=== PATIENT | female | born 1990 | race Caucasian/White ===

== ENCOUNTER 2016-03-04 17:39 | Emergency (ER) | payer OTHER ==
[~2016-03-04 17:39] MED LIST: COLA100C PO; FERR325T3 PO; IBUP80TA PO; PERCOCET PO
[2016-03-04] MEDS ORDERED: KETOROLAC 30 MG/ML VIAL (J1885) As Ordered ONE (19:43)
[2016-03-04] MEDS ORDERED: ONDANSETRON 4MG/2ML VIAL (J2405) As Ordered ONE (19:43)
[2016-03-04] MEDS ORDERED: FAMOTIDINE/NS 20 MG/50 ML BAG (S0028) As Ordered ONE (19:46)
[2016-03-04 19:52] LABS: BASO % 0.4 % (0.0-1.0); EOS # 0.1 K/mm3 (0.0-0.50); EOS % 0.9 % (0.0-3.0); LARGE UNSTAINED CELL # 0.1 K/mm3 (0.0-0.4); LARGE UNSTAINED CELL % 0.7 % (0.0-4.0); LYMPH # 0.4 K/mm3 (1.5-6.5); LYMPH % 4.2 % (24.0-44.0); MEAN CORPUSCULAR HEMOGLOBIN 26.7 pg (27.0-33.0); MEAN CORPUSCULAR HGB CONC 32.1 g/dl (32.0-36.5); MEAN CORPUSCULAR VOLUME 83.1 fl (80.0-96.0); MONO # 0.3 K/mm3 (0.0-0.8); MONO % 3.5 % (0.0-5.0); NEUTROPHILS # 8.9 K/mm3 (1.8-7.7); NEUTROPHILS % 90.4 % (36.0-66.0); PLATELET COUNT, AUTOMATED 309 k/mm3 (150-450); WHITE BLOOD COUNT 9.8 K/mm3 (4.0-10.0)
[2016-03-04 20:07] LABS: CONTROL LINE UCG INT CTR LINE PRESENT
[2016-03-04 20:08] LABS: MICROSCOPIC INDICATED? MAN YES (NO)
[2016-03-04 20:18] LABS: RBC, URINE TNTC /hpf (0-3)
[2016-03-04 20:19] LABS: BACTERIA, URINE SMALL AMOUNT; HYALINE CAST, URINE NONE SEEN /lpf (0-1); MICROSCOPIC EXAM PERFORMED; SQUAMOUS EPITHELIAL CELL URINE SMALL AMOUNT /hpf (SMALL AMT)
[2016-03-04 20:48] LABS: ALBUMIN 3.7 GM/DL (3.2-5.2); ALBUMIN/GLOBULIN RATIO 0.95 (1.00-1.93); ALKALINE PHOSPHATASE 61 U/L (45-117); ALT/SGPT 22 U/L (12-78); ANION GAP 9 MEQ/L (8-16); AST/SGOT 13 U/L (15-37); BILIRUBIN,DIRECT 0.1 MG/DL (0.0-0.2); BILIRUBIN,TOTAL 0.6 MG/DL (0.2-1.0); BLOOD UREA NITROGEN 15 MG/DL (7-18); CALCIUM LEVEL 8.3 MG/DL (8.5-10.1); CARBON DIOXIDE LEVEL 24 MEQ/L (21-32); CHLORIDE LEVEL 109 MEQ/L (98-107); CREATININE FOR GFR 0.81 MG/DL (0.55-1.02); GLOMERULAR FILTRATION RATE > 60.0 (>60); GLUCOSE, FASTING 92 MG/DL (70-105); POTASSIUM SERUM 4.4 MEQ/L (3.5-5.1); SODIUM LEVEL 142 MEQ/L (136-145); TOTAL PROTEIN 7.6 GM/DL (6.4-8.2)
[2016-03-04] MEDS ORDERED: BACTRIM 160MG/800MG DS TAB As Ordered ONE (20:48)
[2016-03-04] MEDS ORDERED: ONDANSETRON 4 MG ORAL DISINTEGRATING TAB (S0181) As Ordered ONE (21:33)
--- NOTE | 2016-03-04 21:38 | EDDOCDS ---
Nurse's Notes [facility] Name: Yuki Richards Age: 25 yrs Sex: Female : 1990 Arrival Date: 03/04/2016 Time: 17:39 Bed I4 / M4 Private MD: NO PRIMARY PHYSICIAN, . Diagnosis: Urinary tract infection, site not specified;Generalized abdominal pain;Vomiting Presentation: 03/04 17:52 Presenting complaint: Patient states: nausea/vomiting/abdominal cramps radiates to back rs3 since this morning. Adult Sepsis Screening: The patient does not have new or worsening altered mentation. Patient's respiratory rate is less than 22. Systolic blood pressure is greater than 100. Patient has a qSOFA score of 0- Negative Sepsis Screen. Suicide/Homicide risk assessment- the patient denies having any suicidal and/or homicidal ideations and does not present with any other emotional, behavioral or mental health complaints. Status: Patient is not a national service officer or dependent. Transition of care: patient was not received from another setting of care. 17:52 Acuity: IAN Level 3 rs3 17:52 Method Of Arrival: Walkin/Carried/Asstd rs3 Triage Assessment: 17:54 General: Appears uncomfortable. Pain: Location: abdomen. HIV screening NA for this rs3 visit Offered previously. 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 TriNessa (28) 0.18/0.215/0.25 mg-35 mcg (28) oral tab - PMHx: none; - PSHx: none; - Social history: Smoking status: Patient uses tobacco products, light tobacco smoker. No barriers to communication noted, The patient speaks fluent Lithuanian. - Family history: Not pertinent. - : The pt / caregiver states he / she is not on anticoagulants. Home medication list is obtained from the patient. - Exposure Risk Screening:: None identified. Screenin:45 Screening information is obtained from the patient. Fall risk: No risks identified. ms2 Assistance ADL's: requires no assistance with activities of daily living. Abuse/DV Screen: The patient / caregiver reports he/she is: not in a situation that causes fear, pain or injury. Nutritional screening: No deficits noted. Advance Directives: Currently, there is a health care proxy, grandmother ---Eva Mary and tamiko Asht Caitlyn. home support is adequate. Assessment: 19:43 General: Appears in no apparent distress, no vomiting pressently. Behavior is ms2 cooperative. Neurological: Level of Consciousness is awake, alert, obeys commands. Respiratory: No deficits noted. Airway is patent Respiratory effort is even, unlabored, Respiratory pattern is regular, symmetrical. GI: Abdomen is flat, non- distended. Derm: Skin is pink, warm & dry. Musculoskeletal: Range of motion intact in all extremities. 20:53 General: Appears in no apparent distress, comfortable, Behavior is cooperative. ms2 Neurological: No deficits noted. Respiratory: Respiratory effort is even, unlabored. Derm: Skin is pink, warm & dry. 21:36 General: Appears in no apparent distress, comfortable, Behavior is appropriate for age, ms18 cooperative, pleasant. Pain: Location: suprapubic area Pain currently is 5 out of 10 on a pain scale. Neurological: No deficits noted. Respiratory: Airway is patent Respiratory effort is even, unlabored. GI: Abdomen is non- distended Bowel sounds present X 4 quads. Abd is soft X 4 quads. : Urine is cloudy. Derm: Skin is pink, warm & dry. Vital Signs: 17:41 BP 114 / 73; Pulse 130; Resp 20; Temp 97.0(O); Pulse Ox 99% on R/A; Weight 68.04 kg elp (R); Height 5 ft. 1 in. (154.94 cm) (R); 21:31 BP 99 / 54; Pulse 82; Resp 18; Temp 99; Pulse Ox 100% ; Pain 5/10; jlm 17:41 Body Mass Index 28.34 (68.04 kg, 154.94 cm) elp Vitals: 17:41 Log In Time: March 04, 2016 at 17:39. el ED Course: 17:40 Patient visited by Giovanna Stevens PCA. elp 17:40 Patient moved to Waiting elp 17:41 NO PRIMARY PHYSICIAN, . is Private Physician. elp 17:42 Patient visited by Giovanna Stevens PCA. elp 17:43 Patient moved to Pre RCE elp 17:52 Triage Initiated rs3 18:46 Patient moved to Triage 1 ar3 18:48 Patient visited by Sapphire Cárdenas RN. dls 19:10 Donnie Kennedy PA is PHCP. mo1 19:10 Chon Butler DO is Attending Physician. mo1 19:21 Patient visited by Donnie Kennedy PA. mo1 19:28 Patient moved to I4 / M4 rs3 19:42 Patient visited by Rajeev Salguero RN. ms2 19:42 Basic Metabolic Profile Sent. ms2 19:42 CBC with Diff Sent. ms2 19:42 Lipase Sent. ms2 19:42 Liver Profile Sent. ms2 19:42 Urine Test-In Lab Sent. ms2 19:42 Inserted saline lock: 20 gauge in right antecubital area The patient tolerated the ms2 procedure well. No procedures done that require assistance. 19:43 The patient / caregiver is instructed regarding the plan of care and ED course. ms2 19:57 Patient visited by Olivia Richards RN. ms18 20:25 [facility] [place] was scanned into [employer] and attached to record. zo 20:54 The patient / caregiver is instructed regarding the plan of care and ED course. ms2 20:54 IV is patent, is intact, is free of redness or swelling. solution is infusing as ms2 ordered. 20:57 Patient visited by Felicita Donahue, Cost Clerk. jlm 21:28 Patient visited by Olivia Richards RN. ms18 21:29 [facility] is Referral Physician. mo1 21:29 Roberto Banda MD is Referral Physician. mo1 21:32 Patient visited by Felicita Donahue, Cost Clerk. jlm 21:36 Accompanied by Friend, Patient has correct armband on for positive identification. ms18 Property sent home with patient. :Personal belongings accompany Pt. 21:36 Discontinued IV lock intact, bleeding controlled, pressure dressing applied, No ms18 redness/swelling at site. Administered Medications: 19:58 Drug: NS 0.9% 1000 ml [sodium chloride 0.9 % intravenous solution] Route: IV; Rate: ms18 bolus; Site: right antecubital; 19:58 Drug: Ondansetron 4 mg Route: IVP; Site: right antecubital; ms18 19:58 Drug: ketorolac 30 mg [ketorolac 30 mg/mL (1 mL) injection solution (1 mL)] Route: IVP; ms18 Site: right antecubital; 19:58 Drug: Famotidine 20 mg [famotidine 10 mg/mL intravenous solution] Route: IVPB; Infused ms18 Over: 30 mins; Site: right antecubital; 20:53 Drug: NS 0.9% 1000 ml [sodium chloride 0.9 % intravenous solution] Route: IV; Rate: ms2 bolus; Site: right antecubital; 20:53 Drug: Trimethoprim-Sulfamethoxazole 1 tabs [sulfamethoxazole 800 mg-trimethoprim 160 mg ms2 tablet (1 tabs)] Route: PO; 21:36 Drug: Ondansetron ODT 4 mg [ondansetron 4 mg disintegrating tablet (1 tabs)] Route: PO; ms18 21:36 Follow up: Response: Pt left department before re-evaluation is appropriate ms18 Point of Care Testing: Urine : 19:57 hCG Reading: Negative; Control Reading: Positive; ms18 Ranges: Intake: 20:53 PO: 80.00ml (Water); IV: 1000.00ml (NS); Total: 1080.00ml. ms2 Order Results: Lab Order: Basic Metabolic Profile; SPEC'M 03/04/16 20:15 Test: GLUCOSE, FASTING; Value: 92; Range: 70-105; Units: MG/DL; Status: F Test: BLOOD UREA NITROGEN; Value: 15; Range: 7-18; Units: MG/DL; Status: F Test: CREATININE FOR GFR; Value: 0.81; Range: 0.55-1.02; Units: MG/DL; Status: F Test: GLOMERULAR FILTRATION RATE; Value: > 60.0; Range: >60; Status: F Test: SODIUM LEVEL; Value: 142; Range: 136-145; Units: MEQ/L; Status: F Test: POTASSIUM SERUM; Value: 4.4; Range: 3.5-5.1; Units: MEQ/L; Status: F Test: CHLORIDE LEVEL; Value: 109; Range: 98-107; Abnormal: Above high normal; Units: MEQ/L; Status: F Test: CARBON DIOXIDE LEVEL; Value: 24; Range: 21-32; Units: MEQ/L; Status: F Test: ANION GAP; Value: 9; Range: 8-16; Units: MEQ/L; Status: F Test: CALCIUM LEVEL; Value: 8.3; Range: 8.5-10.1; Abnormal: Below low normal; Units: MG/DL; Status: F Test Note: ; Units are mL/min/1.73 m2 Chronic Kidney Disease Staging per NKF: Stage I & II GFR >=60 Normal to Mildly Decreased Stage III GFR 30-59 Moderately Decreased Stage IV GFR 15-29 Severely Decreased Stage V GFR <15 Very Little GFR Left ESRD GFR <15 on PAPERBOARD BOXES ESTIMATOR Lab Order: CBC with Diff; SPEC'M 03/04/16 19:35 Test: WHITE BLOOD COUNT; Value: 9.8; Range: 4.0-10.0; Units: K/mm3; Status: F Test: RED BLOOD COUNT; Value: 5.36; Range: 4.00-5.40; Units: M/mm3; Status: F Test: HEMOGLOBIN; Value: 14.3; Range: 12.0-16.0; Units: g/dl; Status: F Test: HEMATOCRIT; Value: 44.5; Range: 36.0-47.0; Units: %; Status: F Test: MEAN CORPUSCULAR VOLUME; Value: 83.1; Range: 80.0-96.0; Units: fl; Status: F Test: MEAN CORPUSCULAR HEMOGLOBIN; Value: 26.7; Range: 27.0-33.0; Abnormal: Below low normal; Units: pg; Status: F Test: MEAN CORPUSCULAR HGB CONC; Value: 32.1; Range: 32.0-36.5; Units: g/dl; Status: F Test: RED CELL DISTRIBUTION WIDTH; Value: 14.0; Range: 11.5-14.5; Units: %; Status: F Test: PLATELET COUNT, AUTOMATED; Value: 309; Range: 150-450; Units: k/mm3; Status: F Test: NEUTROPHILS %; Value: 90.4; Range: 36.0-66.0; Abnormal: Above high normal; Units: %; Status: F Test: LYMPH %; Value: 4.2; Range: 24.0-44.0; Abnormal: Below low normal; Units: %; Status: F Test: MONO %; Value: 3.5; Range: 0.0-5.0; Units: %; Status: F Test: EOS %; Value: 0.9; Range: 0.0-3.0; Units: %; Status: F Test: BASO %; Value: 0.4; Range: 0.0-1.0; Units: %; Status: F Test: LARGE UNSTAINED CELL %; Value: 0.7; Range: 0.0-4.0; Units: %; Status: F Test: NEUTROPHILS #; Value: 8.9; Range: 1.8-7.7; Abnormal: Above high normal; Units: K/mm3; Status: F Test: LYMPH #; Value: 0.4; Range: 1.5-6.5; Abnormal: Below low normal; Units: K/mm3; Status: F Test: MONO #; Value: 0.3; Range: 0.0-0.8; Units: K/mm3; Status: F Test: EOS #; Value: 0.1; Range: 0.0-0.50; Units: K/mm3; Status: F Test: BASO #; Value: 0.0; Range: 0.0-0.2; Units: K/mm3; Status: F Test: LARGE UNSTAINED CELL #; Value: 0.1; Range: 0.0-0.4; Units: K/mm3; Status: F Lab Order: Lipase; SPEC'M 03/04/16 20:15 Test: LIPASE; Value: 116; Range: 73-393; Units: U/L; Status: F Lab Order: Liver Profile; SPEC'M 03/04/16 20:15 Test: AST/SGOT; Value: 13; Range: 15-37; Abnormal: Below low normal; Units: U/L; Status: F Test: ALT/SGPT; Value: 22; Range: 12-78; Units: U/L; Status: F Test: ALKALINE PHOSPHATASE; Value: 61; Range: 45-117; Units: U/L; Status: F Test: BILIRUBIN,TOTAL; Value: 0.6; Range: 0.2-1.0; Units: MG/DL; Status: F Test: BILIRUBIN,DIRECT; Value: 0.1; Range: 0.0-0.2; Units: MG/DL; Status: F Test: TOTAL PROTEIN; Value: 7.6; Range: 6.4-8.2; Units: GM/DL; Status: F Test: ALBUMIN; Value: 3.7; Range: 3.2-5.2; Units: GM/DL; Status: F Test: ALBUMIN/GLOBULIN RATIO; Value: 0.95; Range: 1.00-1.93; Abnormal: Below low normal; Status: F Lab Order: Urine Test-In Lab; SPEC'M 03/04/16 19:35 Test: URINE PREG TEST; Value: NEGATIVE; Range: NEGATIVE; Status: F Lab Order: URINALYSIS MANUAL; SPEC'M 03/04/16 19:35 Test: APPEARANCE, URINE MANUAL; Value: TURBID; Range: CLEAR; Abnormal: Above high normal; Status: F Test: COLOR, URINE MANUAL; Value: COLIN; Range: YELLOW; Abnormal: Above high normal; Status: F Test: PH,URINE MAN; Value: 5.0; Range: 5.0 - 9.0; Units: UNITS; Status: F Test: SPECIFIC GRAVITY,URINE MANUAL; Value: 1.025; Range: 1.002-1.035; Status: F Test: PROTEIN, URINE MANUAL; Value: 1+; Range: NEGATIVE; Abnormal: Above high normal; Units: mg/dL; Status: F Test: GLUCOSE, URINE (UA) MANUAL; Value: NEGATIVE; Range: NEGATIVE; Units: mg/dL; Status: F Test: KETONE, URINE MANUAL; Value: 2+; Range: NEGATIVE; Abnormal: Above high normal; Units: mg/dL; Status: F Test: UROBILINOGEN, URINE MANUAL; Value: NORMAL; Range: NORMAL; Units: mg/dl; Status: F Test: BILIRUBIN, URINE MANUAL; Value: NEGATIVE; Range: NEGATIVE; Status: F Test: NITRITE, URINE MANUAL; Value: TRACE; Range: NEGATIVE; Abnormal: Above high normal; Status: F Test: LEUKOCYTE ESTERASE, URINE MAN; Value: POSITIVE; Range: NEGATIVE; Abnormal: Above high normal; Status: F Test: BLOOD URINE MANUAL; Value: POSITIVE; Range: NEGATIVE; Abnormal: Above high normal; Status: F Lab Order: MICROSCOPIC, URINE; SPEC'M 03/04/16 19:35 Test: WBC, URINE; Value: 5-7; Range: 0-3; Abnormal: Above high normal; Units: /hpf; Status: F Test: RBC, URINE; Value: TNTC; Range: 0-3; Abnormal: Above high normal; Units: /hpf; Status: F Test: SQUAMOUS EPITHELIAL CELL URINE; Value: SMALL AMOUNT; Range: SMALL AMT; Units: /hpf; Status: F Test: BACTERIA, URINE; Value: SMALL AMOUNT; Range: NONE; Abnormal: Above high normal; Status: F Test: HYALINE CAST, URINE; Value: NONE SEEN; Range: 0-1; Units: /lpf; Status: F Test: MICROSCOPIC EXAM; Status: I Test: MUCUS, URINE; Value: SMALL AMOUNT; Range: NEGATIVE; Abnormal: Above high normal; Status: F Test: AMORPHOUS SEDIMENT, URINE; Value: LARGE AMOUNT; Range: NEGATIVE; Abnormal: Above high normal; Status: F Test: MICROSCOPIC EXAM; Value: PERFORMED; Status: F Outcome: 21:29 Discharge ordered by Provider. mo1 21:36 Discharge Assessment: Patient awake, alert and oriented x 3. No cognitive and/or ms18 functional deficits noted. Patient verbalized understanding of disposition instructions. patient administered narcotics - no. The following High Risk Discharge criteria are identified: None. Discharged to home ambulatory. Condition: good Condition: stable Condition: improved. Discharge instructions given to patient, Instructed on discharge instructions, follow up and referral plans. medication usage, Demonstrated understanding of instructions, medications, Pt was receptive of discharge instructions/ teaching. Prescriptions given X 2. No special radiology studies were completed. 21:38 Patient left the ED. ms18 Signatures: Rajeev Salguero RN RN ms2 Sapphire Cárdenas RN RN dls Olin, Zoeann zo Soosairaj, Rosemary, RN RN rs3 Justyna Hernandez, WORD PROCESSOR WORD PROCESSOR ar3 Donnie Kennedy PA PA mo1 Giovanna Stevens, WORD PROCESSOR WORD PROCESSOR melip Felicita Donahue, Cost Clerk Unit Olivia Woods RN RN ms18 Corrections: (The following items were deleted from the chart) 19:44 19:42 LAB URINE TEST+LAB sent. ms2 EDMS 20:05 19:42 URINALYSIS+LAB sent. ms2 EDMS MTDD
--- NOTE | 2016-03-04 21:38 | EDDOCDS ---
Physician Documentation [facility] Name: Yuki Richards Age: 25 yrs Sex: Female : 1990 Arrival Date: 03/04/2016 Time: 17:39 Bed I4 / M4 Private MD: NO PRIMARY PHYSICIAN, . Disposition: 03/04/16 21:29 Discharged to Home/Self Care. Impression: Urinary tract infection, site not specified, Generalized abdominal pain, Vomiting. - Condition is Stable. - Discharge Instructions: Abdominal Pain, Adult, Nausea and Vomiting, Urinary Tract Infection. - Prescriptions for Bactrim DS 800- 160 mg Oral Tablet - take 1 tablet by ORAL route every 12 hours for 10 days; 20 tablet. ZOFRAN ODT 4 mg - dissolve 1 tablet by ORAL route 4 times per day As needed do not chew, do not swallow whole; 10 tablet. - Medication Reconciliation, Local Pharmacy Hours form. - [facility]; When: Call to arrange an appointment; Reason: Recheck today's complaints, Continuance of care. Follow up: Roberto Banda MD; When: Call to arrange an appointment; Reason: Recheck today's complaints, Continuance of care. - Problem is new. - Symptoms are unchanged. Historical: - Allergies: PENICILLINS (Anaphylaxis); - Home Meds: 1. TriNessa (28) 0.18/0.215/0.25 mg-35 mcg (28) oral tab - PMHx: none; - PSHx: none; - Social history: Smoking status: Patient uses tobacco products, light tobacco smoker. No barriers to communication noted, The patient speaks fluent Icelandic. - Family history: Not pertinent. - : The pt / caregiver states he / she is not on anticoagulants. Home medication list is obtained from the patient. - Exposure Risk Screening:: None identified. 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 1 in. (154.94 cm) (R); 21:31 BP 99 / 54; Pulse 82; Resp 18; Temp 99; Pulse Ox 100% ; Pain 5/10; jlm 17:41 Body Mass Index 28.34 (68.04 kg, 154.94 cm) elp MDM: 19:28 NS 0.9% 1000 ml IV at bolus once ordered. mo1 19:28 Ondansetron 4 mg IVP once ordered. mo1 19:28 ketorolac 30 mg IVP once ordered. mo1 19:28 IV Saline Lock ordered. mo1 19:28 Undress patient appropriately for examination ordered. mo1 19:28 Famotidine 20 mg IVPB once over 30 mins; dilute in 50mL of NS ordered. mo1 19:29 Basic Metabolic Profile Ordered. EDMS 19:29 CBC with Diff Ordered. EDMS 19:29 Lipase Ordered. EDMS 19:29 Liver Profile Ordered. EDMS 19:29 Urine Test-In Lab Ordered. EDMS 19:30 NOTHING BY MOUTH+DIET ordered. EDMS 20:05 URINALYSIS MANUAL Ordered. EDMS 20:11 MICROSCOPIC, URINE Ordered. EDMS 20:22 Financial registration complete. zo 20:25 [facility] [place] Agreement was scanned into [employer] and attached to record. zo 20:44 CBC with Diff Reviewed. mo1 20:44 URINALYSIS MANUAL Reviewed. mo1 20:44 MICROSCOPIC, URINE Reviewed. mo1 20:45 Urine Test-In Lab Reviewed. mo1 20:46 NS 0.9% 1000 ml IV at bolus once ordered. mo1 20:46 Trimethoprim-Sulfamethoxazole 160 mg-800 mg (DS) 1 tabs PO once ordered. mo1 21:08 Liver Profile Reviewed. mo1 21:08 Basic Metabolic Profile Reviewed. mo1 21:09 Lipase Reviewed. mo1 21:32 Ondansetron ODT Oral Disintegrating Tablet 4 mg PO once ordered. mo1 Point of Care Testing: Urine : 19:57 hCG Reading: Negative; Control Reading: Positive; ms18 Ranges: Administered Medications: 19:58 Drug: NS 0.9% 1000 ml [sodium chloride 0.9 % intravenous solution] Route: IV; Rate: ms18 bolus; Site: right antecubital; 19:58 Drug: Ondansetron 4 mg Route: IVP; Site: right antecubital; ms18 19:58 Drug: ketorolac 30 mg [ketorolac 30 mg/mL (1 mL) injection solution (1 mL)] Route: IVP; ms18 Site: right antecubital; 19:58 Drug: Famotidine 20 mg [famotidine 10 mg/mL intravenous solution] Route: IVPB; Infused ms18 Over: 30 mins; Site: right antecubital; 20:53 Drug: NS 0.9% 1000 ml [sodium chloride 0.9 % intravenous solution] Route: IV; Rate: ms2 bolus; Site: right antecubital; 20:53 Drug: Trimethoprim-Sulfamethoxazole 1 tabs [sulfamethoxazole 800 mg-trimethoprim 160 mg ms2 tablet (1 tabs)] Route: PO; 21:36 Drug: Ondansetron ODT 4 mg [ondansetron 4 mg disintegrating tablet (1 tabs)] Route: PO; ms18 21:36 Follow up: Response: Pt left department before re-evaluation is appropriate ms18 Signatures: Dispatcher [employer] EDJatin Virgen Rosemary, RN RN rs3 Donnie Kennedy PA PA mo1 Olivia Richards RN RN ms18 Rajeev Salguero RN ms2 The chart was reviewed and I authenticate all verbal orders and agree with the evaluation and treatment provided.Corrections: (The following items were deleted from the chart) 19:44 19:37 LAB URINE TEST+LAB ordered. EDMS EDMS 20:05 19:29 URINALYSIS+LAB ordered. EDMS EDMS Attachments: 20:25 [facility] Payment Agreement zo MTDD
--- NOTE | 2016-03-06 22:38 | EDDOCDS ---
Physician Documentation [facility] Name: Yuki Richards Age: 25 yrs Sex: Female : 1990 Arrival Date: 03/04/2016 Time: 17:39 Bed I4 / M4 Private MD: NO PRIMARY PHYSICIAN, . Disposition: 03/04/16 21:29 Discharged to Home/Self Care. Impression: Urinary tract infection, site not specified, Generalized abdominal pain, Vomiting. - Condition is Stable. - Discharge Instructions: Abdominal Pain, Adult, Nausea and Vomiting, Urinary Tract Infection. - Prescriptions for Bactrim DS 800- 160 mg Oral Tablet - take 1 tablet by ORAL route every 12 hours for 10 days; 20 tablet. ZOFRAN ODT 4 mg - dissolve 1 tablet by ORAL route 4 times per day As needed do not chew, do not swallow whole; 10 tablet. - Medication Reconciliation, Local Pharmacy Hours form. - [facility]; When: Call to arrange an appointment; Reason: Recheck today's complaints, Continuance of care. Follow up: Roberto Banda MD; When: Call to arrange an appointment; Reason: Recheck today's complaints, Continuance of care. - Problem is new. - Symptoms are unchanged. Historical: - Allergies: PENICILLINS (Anaphylaxis); - Home Meds: 1. TriNessa (28) 0.18/0.215/0.25 mg-35 mcg (28) oral tab - PMHx: none; - PSHx: none; - Social history: Smoking status: Patient uses tobacco products, light tobacco smoker. No barriers to communication noted, The patient speaks fluent Syrian. - Family history: Not pertinent. - : The pt / caregiver states he / she is not on anticoagulants. Home medication list is obtained from the patient. - Exposure Risk Screening:: None identified. 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 1 in. (154.94 cm) (R); 21:31 BP 99 / 54; Pulse 82; Resp 18; Temp 99; Pulse Ox 100% ; Pain 5/10; jlm 17:41 Body Mass Index 28.34 (68.04 kg, 154.94 cm) elp MDM: 19:28 NS 0.9% 1000 ml IV at bolus once ordered. mo1 19:28 Ondansetron 4 mg IVP once ordered. mo1 19:28 ketorolac 30 mg IVP once ordered. mo1 19:28 IV Saline Lock ordered. mo1 19:28 Undress patient appropriately for examination ordered. mo1 19:28 Famotidine 20 mg IVPB once over 30 mins; dilute in 50mL of NS ordered. mo1 19:29 Basic Metabolic Profile Ordered. EDMS 19:29 CBC with Diff Ordered. EDMS 19:29 Lipase Ordered. EDMS 19:29 Liver Profile Ordered. EDMS 19:29 Urine Test-In Lab Ordered. EDMS 19:30 NOTHING BY MOUTH+DIET ordered. EDMS 20:05 URINALYSIS MANUAL Ordered. EDMS 20:11 MICROSCOPIC, URINE Ordered. EDMS 20:22 Financial registration complete. zo 20:25 [facility] [place] Payment Agreement was scanned into [employer] and attached to record. zo 20:44 CBC with Diff Reviewed. mo1 20:44 URINALYSIS MANUAL Reviewed. mo1 20:44 MICROSCOPIC, URINE Reviewed. mo1 20:45 Urine Test-In Lab Reviewed. mo1 20:46 NS 0.9% 1000 ml IV at bolus once ordered. mo1 20:46 Trimethoprim-Sulfamethoxazole 160 mg-800 mg (DS) 1 tabs PO once ordered. mo1 21:08 Liver Profile Reviewed. mo1 21:08 Basic Metabolic Profile Reviewed. mo1 21:09 Lipase Reviewed. mo1 21:32 Ondansetron ODT Oral Disintegrating Tablet 4 mg PO once ordered. mo1 22:35 T-Sheet-- Draft Copy was scanned into [employer] and attached to record. klr Point of Care Testing: Urine : 19:57 hCG Reading: Negative; Control Reading: Positive; ms18 Ranges: Administered Medications: 19:58 Drug: NS 0.9% 1000 ml [sodium chloride 0.9 % intravenous solution] Route: IV; Rate: ms18 bolus; Site: right antecubital; 21:39 Follow up: IV Status: Completed infusion; IV Intake: 1000ml ms18 19:58 Drug: Ondansetron 4 mg Route: IVP; Site: right antecubital; ms18 21:39 Follow up: Response: No Adverse Reaction ms18 19:58 Drug: ketorolac 30 mg [ketorolac 30 mg/mL (1 mL) injection solution (1 mL)] Route: IVP; ms18 Site: right antecubital; 21:40 Follow up: Response: No Adverse Reaction ms18 19:58 Drug: Famotidine 20 mg [famotidine 10 mg/mL intravenous solution] Route: IVPB; Infused ms18 Over: 30 mins; Site: right antecubital; 20:30 Follow up: IV Status: Completed infusion; IV Intake: 50ml ms18 20:53 Drug: NS 0.9% 1000 ml [sodium chloride 0.9 % intravenous solution] Route: IV; Rate: ms2 bolus; Site: right antecubital; 21:38 Follow up: IV Status: Completed infusion; IV Intake: 900ml ms18 20:53 Drug: Trimethoprim-Sulfamethoxazole 1 tabs [sulfamethoxazole 800 mg-trimethoprim 160 mg ms2 tablet (1 tabs)] Route: PO; 21:39 Follow up: Response: Pt left department before re-evaluation is appropriate ms18 21:36 Drug: Ondansetron ODT 4 mg [ondansetron 4 mg disintegrating tablet (1 tabs)] Route: PO; ms18 21:36 Follow up: Response: Pt left department before re-evaluation is appropriate ms18 Signatures: Dispatcher [employer] EDJatin Virgen Rosemary, RN RN rs3 Donnie Kennedy PA PA mo1 Olivia Richards RN RN ms18 Caroline Lala Michele RN ms2 The chart was reviewed and I authenticate all verbal orders and agree with the evaluation and treatment provided.Corrections: (The following items were deleted from the chart) 19:44 19:37 LAB URINE TEST+LAB ordered. EDMS EDMS 20:05 19:29 URINALYSIS+LAB ordered. EDMS EDMS Attachments: 20:25 [facility] Payment Agreement zo 22:35 T-Sheet-- Draft Copy klr Chart Complete MTDD
--- NOTE | 2016-03-06 22:38 | EDDOCDS ---
Physician Documentation [facility] Name: Yuik Richards Age: 25 yrs Sex: Female : 1990 Arrival Date: 03/04/2016 Time: 17:39 Bed I4 / M4 Private MD: NO PRIMARY PHYSICIAN, . Disposition: 03/04/16 21:29 Discharged to Home/Self Care. Impression: Urinary tract infection, site not specified, Generalized abdominal pain, Vomiting. - Condition is Stable. - Discharge Instructions: Abdominal Pain, Adult, Nausea and Vomiting, Urinary Tract Infection. - Prescriptions for Bactrim DS 800- 160 mg Oral Tablet - take 1 tablet by ORAL route every 12 hours for 10 days; 20 tablet. ZOFRAN ODT 4 mg - dissolve 1 tablet by ORAL route 4 times per day As needed do not chew, do not swallow whole; 10 tablet. - Medication Reconciliation, Local Pharmacy Hours form. - [facility]; When: Call to arrange an appointment; Reason: Recheck today's complaints, Continuance of care. Follow up: Roberto Banda MD; When: Call to arrange an appointment; Reason: Recheck today's complaints, Continuance of care. - Problem is new. - Symptoms are unchanged. Historical: - Allergies: PENICILLINS (Anaphylaxis); - Home Meds: 1. TriNessa (28) 0.18/0.215/0.25 mg-35 mcg (28) oral tab - PMHx: none; - PSHx: none; - Social history: Smoking status: Patient uses tobacco products, light tobacco smoker. No barriers to communication noted, The patient speaks fluent Armenian. - Family history: Not pertinent. - : The pt / caregiver states he / she is not on anticoagulants. Home medication list is obtained from the patient. - Exposure Risk Screening:: None identified. TOP CAGER: 03/04 17:54 LMP 02/28/2016 rs3 Vital Signs: 17:41 BP 114 / 73; Pulse 130; Resp 20; Temp 97.0(O); Pulse Ox 99% on R/A; Weight 68.04 kg / elp 150 lbs (R); Height 5 ft. 1 in. (154.94 cm) (R); 21:31 BP 99 / 54; Pulse 82; Resp 18; Temp 99; Pulse Ox 100% ; Pain 5/10; jlm 17:41 Body Mass Index 28.34 (68.04 kg, 154.94 cm) elp MDM: 19:28 NS 0.9% 1000 ml IV at bolus once ordered. mo1 19:28 Ondansetron 4 mg IVP once ordered. mo1 19:28 ketorolac 30 mg IVP once ordered. mo1 19:28 IV Saline Lock ordered. mo1 19:28 Undress patient appropriately for examination ordered. mo1 19:28 Famotidine 20 mg IVPB once over 30 mins; dilute in 50mL of NS ordered. mo1 19:29 Basic Metabolic Profile Ordered. EDMS 19:29 CBC with Diff Ordered. EDMS 19:29 Lipase Ordered. EDMS 19:29 Liver Profile Ordered. EDMS 19:29 Urine Test-In Lab Ordered. EDMS 19:30 NOTHING BY MOUTH+DIET ordered. EDMS 20:05 URINALYSIS MANUAL Ordered. EDMS 20:11 MICROSCOPIC, URINE Ordered. EDMS 20:22 Financial registration complete. zo 20:25 [facility] Payment Agreement was scanned into [employer] and attached to record. zo 20:44 CBC with Diff Reviewed. mo1 20:44 URINALYSIS MANUAL Reviewed. mo1 20:44 MICROSCOPIC, URINE Reviewed. mo1 20:45 Urine Test-In Lab Reviewed. mo1 20:46 NS 0.9% 1000 ml IV at bolus once ordered. mo1 20:46 Trimethoprim-Sulfamethoxazole 160 mg-800 mg (DS) 1 tabs PO once ordered. mo1 21:08 Liver Profile Reviewed. mo1 21:08 Basic Metabolic Profile Reviewed. mo1 21:09 Lipase Reviewed. mo1 21:32 Ondansetron ODT Oral Disintegrating Tablet 4 mg PO once ordered. mo1 22:35 T-Sheet-- Draft Copy was scanned into Hum and attached to record. klr Point of Care Testing: Urine : 19:57 hCG Reading: Negative; Control Reading: Positive; ms18 Ranges: Administered Medications: 19:58 Drug: NS 0.9% 1000 ml [sodium chloride 0.9 % intravenous solution] Route: IV; Rate: ms18 bolus; Site: right antecubital; 21:39 Follow up: IV Status: Completed infusion; IV Intake: 1000ml ms18 19:58 Drug: Ondansetron 4 mg Route: IVP; Site: right antecubital; ms18 21:39 Follow up: Response: No Adverse Reaction ms18 19:58 Drug: ketorolac 30 mg [ketorolac 30 mg/mL (1 mL) injection solution (1 mL)] Route: IVP; ms18 Site: right antecubital; 21:40 Follow up: Response: No Adverse Reaction ms18 19:58 Drug: Famotidine 20 mg [famotidine 10 mg/mL intravenous solution] Route: IVPB; Infused ms18 Over: 30 mins; Site: right antecubital; 20:30 Follow up: IV Status: Completed infusion; IV Intake: 50ml ms18 20:53 Drug: NS 0.9% 1000 ml [sodium chloride 0.9 % intravenous solution] Route: IV; Rate: ms2 bolus; Site: right antecubital; 21:38 Follow up: IV Status: Completed infusion; IV Intake: 900ml ms18 20:53 Drug: Trimethoprim-Sulfamethoxazole 1 tabs [sulfamethoxazole 800 mg-trimethoprim 160 mg ms2 tablet (1 tabs)] Route: PO; 21:39 Follow up: Response: Pt left department before re-evaluation is appropriate ms18 21:36 Drug: Ondansetron ODT 4 mg [ondansetron 4 mg disintegrating tablet (1 tabs)] Route: PO; ms18 21:36 Follow up: Response: Pt left department before re-evaluation is appropriate ms18 Signatures: Dispatcher [employer] EDJatin Virgen Rosemary, RN RN rs3 Donnie Kennedy PA PA mo1 Olivia Richards RN RN ms18 Caroline Lala Michele RN ms2 The chart was reviewed and I authenticate all verbal orders and agree with the evaluation and treatment provided.Corrections: (The following items were deleted from the chart) 19:44 19:37 LAB URINE TEST+LAB ordered. EDMS EDMS 20:05 19:29 URINALYSIS+LAB ordered. EDMS EDMS Attachments: 20:25 [facility] Payment Agreement zo 22:35 T-Sheet-- Draft Copy klr Chart Complete MTDD
--- NOTE | 2016-03-06 22:38 | EDDOCDS ---
Nurse's Notes [facility] Name: Yuki Richards Age: 25 yrs Sex: Female : 1990 Arrival Date: 03/04/2016 Time: 17:39 Bed I4 / M4 Private MD: NO PRIMARY PHYSICIAN, . Diagnosis: Urinary tract infection, site not specified;Generalized abdominal pain;Vomiting Presentation: 03/04 17:52 Presenting complaint: Patient states: nausea/vomiting/abdominal cramps radiates to back rs3 since this morning. Adult Sepsis Screening: The patient does not have new or worsening altered mentation. Patient's respiratory rate is less than 22. Systolic blood pressure is greater than 100. Patient has a qSOFA score of 0- Negative Sepsis Screen. Suicide/Homicide risk assessment- the patient denies having any suicidal and/or homicidal ideations and does not present with any other emotional, behavioral or mental health complaints. Status: Patient is not a service clerk or dependent. Transition of care: patient was not received from another setting of care. 17:52 Acuity: IAN Level 3 rs3 17:52 Method Of Arrival: Walkin/Carried/Asstd rs3 Triage Assessment: 17:54 General: Appears uncomfortable. Pain: Location: abdomen. HIV screening NA for this rs3 visit Offered previously. 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 TriNessa (28) 0.18/0.215/0.25 mg-35 mcg (28) oral tab - PMHx: none; - PSHx: none; - Social history: Smoking status: Patient uses tobacco products, light tobacco smoker. No barriers to communication noted, The patient speaks fluent Yoruba. - Family history: Not pertinent. - : The pt / caregiver states he / she is not on anticoagulants. Home medication list is obtained from the patient. - Exposure Risk Screening:: None identified. Screenin:45 Screening information is obtained from the patient. Fall risk: No risks identified. ms2 Assistance ADL's: requires no assistance with activities of daily living. Abuse/DV Screen: The patient / caregiver reports he/she is: not in a situation that causes fear, pain or injury. Nutritional screening: No deficits noted. Advance Directives: Currently, there is a health care proxy, grandmother ---Eva Mary and tamiko Asht Caitlyn. home support is adequate. Assessment: 19:43 General: Appears in no apparent distress, no vomiting pressently. Behavior is ms2 cooperative. Neurological: Level of Consciousness is awake, alert, obeys commands. Respiratory: No deficits noted. Airway is patent Respiratory effort is even, unlabored, Respiratory pattern is regular, symmetrical. GI: Abdomen is flat, non- distended. Derm: Skin is pink, warm & dry. Musculoskeletal: Range of motion intact in all extremities. 20:53 General: Appears in no apparent distress, comfortable, Behavior is cooperative. ms2 Neurological: No deficits noted. Respiratory: Respiratory effort is even, unlabored. Derm: Skin is pink, warm & dry. 21:36 General: Appears in no apparent distress, comfortable, Behavior is appropriate for age, ms18 cooperative, pleasant. Pain: Location: suprapubic area Pain currently is 5 out of 10 on a pain scale. Neurological: No deficits noted. Respiratory: Airway is patent Respiratory effort is even, unlabored. GI: Abdomen is non- distended Bowel sounds present X 4 quads. Abd is soft X 4 quads. : Urine is cloudy. Derm: Skin is pink, warm & dry. Vital Signs: 17:41 BP 114 / 73; Pulse 130; Resp 20; Temp 97.0(O); Pulse Ox 99% on R/A; Weight 68.04 kg elp (R); Height 5 ft. 1 in. (154.94 cm) (R); 21:31 BP 99 / 54; Pulse 82; Resp 18; Temp 99; Pulse Ox 100% ; Pain 5/10; jlm 17:41 Body Mass Index 28.34 (68.04 kg, 154.94 cm) elp Vitals: 17:41 Log In Time: March 04, 2016 at 17:39. el ED Course: 17:40 Patient visited by Giovanna Stevens PCA. elp 17:40 Patient moved to Waiting elp 17:41 NO PRIMARY PHYSICIAN, . is Private Physician. elp 17:42 Patient visited by Giovanna Stevens PCA. elp 17:43 Patient moved to Pre RCE elp 17:52 Triage Initiated rs3 18:46 Patient moved to Triage 1 ar3 18:48 Patient visited by Sapphire Cárdenas, GITA. dls 19:10 Donnie Kennedy PA is PHCP. mo1 19:10 Chon Butler DO is Attending Physician. mo1 19:21 Patient visited by Donnie Kennedy PA. mo1 19:28 Patient moved to I4 / M4 rs3 19:42 Patient visited by Rajeev Salguero,GITA. ms2 19:42 Basic Metabolic Profile Sent. ms2 19:42 CBC with Diff Sent. ms2 19:42 Lipase Sent. ms2 19:42 Liver Profile Sent. ms2 19:42 Urine Test-In Lab Sent. ms2 19:42 Inserted saline lock: 20 gauge in right antecubital area The patient tolerated the ms2 procedure well. No procedures done that require assistance. 19:43 The patient / caregiver is instructed regarding the plan of care and ED course. ms2 19:57 Patient visited by Olivia Richards RN. ms18 20:25 [facility] Payment Agreement was scanned into [employer] and attached to record. zo 20:54 The patient / caregiver is instructed regarding the plan of care and ED course. ms2 20:54 IV is patent, is intact, is free of redness or swelling. solution is infusing as ms2 ordered. 20:57 Patient visited by Felicita Donahue, Director Of Special Services. jlm 21:28 Patient visited by Olivia Richards RN. ms18 21:29 [facility] is Referral Physician. mo1 21:29 Roberto Banda MD is Referral Physician. mo1 21:32 Patient visited by Felicita Donahue, Director Of Special Services. jlm 21:36 Accompanied by Friend, Patient has correct armband on for positive identification. ms18 Property sent home with patient. :Personal belongings accompany Pt. 21:36 Discontinued IV lock intact, bleeding controlled, pressure dressing applied, No ms18 redness/swelling at site. 22:35 T-Sheet-- Draft Copy was scanned into [employer] and attached to record. klr Administered Medications: 19:58 Drug: NS 0.9% 1000 ml [sodium chloride 0.9 % intravenous solution] Route: IV; Rate: ms18 bolus; Site: right antecubital; 21:39 Follow up: IV Status: Completed infusion; IV Intake: 1000ml ms18 19:58 Drug: Ondansetron 4 mg Route: IVP; Site: right antecubital; ms18 21:39 Follow up: Response: No Adverse Reaction ms18 19:58 Drug: ketorolac 30 mg [ketorolac 30 mg/mL (1 mL) injection solution (1 mL)] Route: IVP; ms18 Site: right antecubital; 21:40 Follow up: Response: No Adverse Reaction ms18 19:58 Drug: Famotidine 20 mg [famotidine 10 mg/mL intravenous solution] Route: IVPB; Infused ms18 Over: 30 mins; Site: right antecubital; 20:30 Follow up: IV Status: Completed infusion; IV Intake: 50ml ms18 20:53 Drug: NS 0.9% 1000 ml [sodium chloride 0.9 % intravenous solution] Route: IV; Rate: ms2 bolus; Site: right antecubital; 21:38 Follow up: IV Status: Completed infusion; IV Intake: 900ml ms18 20:53 Drug: Trimethoprim-Sulfamethoxazole 1 tabs [sulfamethoxazole 800 mg-trimethoprim 160 mg ms2 tablet (1 tabs)] Route: PO; 21:39 Follow up: Response: Pt left department before re-evaluation is appropriate ms18 21:36 Drug: Ondansetron ODT 4 mg [ondansetron 4 mg disintegrating tablet (1 tabs)] Route: PO; ms18 21:36 Follow up: Response: Pt left department before re-evaluation is appropriate ms18 Point of Care Testing: Urine : 19:57 hCG Reading: Negative; Control Reading: Positive; ms18 Ranges: Intake: 20:53 PO: 80.00ml (Water); IV: 1000.00ml (NS); Total: 1080.00ml. ms2 Order Results: Lab Order: Basic Metabolic Profile; SPEC'M 03/04/16 20:15 Test: GLUCOSE, FASTING; Value: 92; Range: 70-105; Units: MG/DL; Status: F Test: BLOOD UREA NITROGEN; Value: 15; Range: 7-18; Units: MG/DL; Status: F Test: CREATININE FOR GFR; Value: 0.81; Range: 0.55-1.02; Units: MG/DL; Status: F Test: GLOMERULAR FILTRATION RATE; Value: > 60.0; Range: >60; Status: F Test: SODIUM LEVEL; Value: 142; Range: 136-145; Units: MEQ/L; Status: F Test: POTASSIUM SERUM; Value: 4.4; Range: 3.5-5.1; Units: MEQ/L; Status: F Test: CHLORIDE LEVEL; Value: 109; Range: 98-107; Abnormal: Above high normal; Units: MEQ/L; Status: F Test: CARBON DIOXIDE LEVEL; Value: 24; Range: 21-32; Units: MEQ/L; Status: F Test: ANION GAP; Value: 9; Range: 8-16; Units: MEQ/L; Status: F Test: CALCIUM LEVEL; Value: 8.3; Range: 8.5-10.1; Abnormal: Below low normal; Units: MG/DL; Status: F Test Note: ; Units are mL/min/1.73 m2 Chronic Kidney Disease Staging per NKF: Stage I & II GFR >=60 Normal to Mildly Decreased Stage III GFR 30-59 Moderately Decreased Stage IV GFR 15-29 Severely Decreased Stage V GFR <15 Very Little GFR Left ESRD GFR <15 on LEGISLATIVE AIDE Lab Order: CBC with Diff; SPEC'M 03/04/16 19:35 Test: WHITE BLOOD COUNT; Value: 9.8; Range: 4.0-10.0; Units: K/mm3; Status: F Test: RED BLOOD COUNT; Value: 5.36; Range: 4.00-5.40; Units: M/mm3; Status: F Test: HEMOGLOBIN; Value: 14.3; Range: 12.0-16.0; Units: g/dl; Status: F Test: HEMATOCRIT; Value: 44.5; Range: 36.0-47.0; Units: %; Status: F Test: MEAN CORPUSCULAR VOLUME; Value: 83.1; Range: 80.0-96.0; Units: fl; Status: F Test: MEAN CORPUSCULAR HEMOGLOBIN; Value: 26.7; Range: 27.0-33.0; Abnormal: Below low normal; Units: pg; Status: F Test: MEAN CORPUSCULAR HGB CONC; Value: 32.1; Range: 32.0-36.5; Units: g/dl; Status: F Test: RED CELL DISTRIBUTION WIDTH; Value: 14.0; Range: 11.5-14.5; Units: %; Status: F Test: PLATELET COUNT, AUTOMATED; Value: 309; Range: 150-450; Units: k/mm3; Status: F Test: NEUTROPHILS %; Value: 90.4; Range: 36.0-66.0; Abnormal: Above high normal; Units: %; Status: F Test: LYMPH %; Value: 4.2; Range: 24.0-44.0; Abnormal: Below low normal; Units: %; Status: F Test: MONO %; Value: 3.5; Range: 0.0-5.0; Units: %; Status: F Test: EOS %; Value: 0.9; Range: 0.0-3.0; Units: %; Status: F Test: BASO %; Value: 0.4; Range: 0.0-1.0; Units: %; Status: F Test: LARGE UNSTAINED CELL %; Value: 0.7; Range: 0.0-4.0; Units: %; Status: F Test: NEUTROPHILS #; Value: 8.9; Range: 1.8-7.7; Abnormal: Above high normal; Units: K/mm3; Status: F Test: LYMPH #; Value: 0.4; Range: 1.5-6.5; Abnormal: Below low normal; Units: K/mm3; Status: F Test: MONO #; Value: 0.3; Range: 0.0-0.8; Units: K/mm3; Status: F Test: EOS #; Value: 0.1; Range: 0.0-0.50; Units: K/mm3; Status: F Test: BASO #; Value: 0.0; Range: 0.0-0.2; Units: K/mm3; Status: F Test: LARGE UNSTAINED CELL #; Value: 0.1; Range: 0.0-0.4; Units: K/mm3; Status: F Lab Order: Lipase; SPEC'M 03/04/16 20:15 Test: LIPASE; Value: 116; Range: 73-393; Units: U/L; Status: F Lab Order: Liver Profile; SPEC'M 03/04/16 20:15 Test: AST/SGOT; Value: 13; Range: 15-37; Abnormal: Below low normal; Units: U/L; Status: F Test: ALT/SGPT; Value: 22; Range: 12-78; Units: U/L; Status: F Test: ALKALINE PHOSPHATASE; Value: 61; Range: 45-117; Units: U/L; Status: F Test: BILIRUBIN,TOTAL; Value: 0.6; Range: 0.2-1.0; Units: MG/DL; Status: F Test: BILIRUBIN,DIRECT; Value: 0.1; Range: 0.0-0.2; Units: MG/DL; Status: F Test: TOTAL PROTEIN; Value: 7.6; Range: 6.4-8.2; Units: GM/DL; Status: F Test: ALBUMIN; Value: 3.7; Range: 3.2-5.2; Units: GM/DL; Status: F Test: ALBUMIN/GLOBULIN RATIO; Value: 0.95; Range: 1.00-1.93; Abnormal: Below low normal; Status: F Lab Order: Urine Test-In Lab; SPEC'M 03/04/16 19:35 Test: URINE PREG TEST; Value: NEGATIVE; Range: NEGATIVE; Status: F Lab Order: URINALYSIS MANUAL; SPEC'M 03/04/16 19:35 Test: APPEARANCE, URINE MANUAL; Value: TURBID; Range: CLEAR; Abnormal: Above high normal; Status: F Test: COLOR, URINE MANUAL; Value: COLIN; Range: YELLOW; Abnormal: Above high normal; Status: F Test: PH,URINE MAN; Value: 5.0; Range: 5.0 - 9.0; Units: UNITS; Status: F Test: SPECIFIC GRAVITY,URINE MANUAL; Value: 1.025; Range: 1.002-1.035; Status: F Test: PROTEIN, URINE MANUAL; Value: 1+; Range: NEGATIVE; Abnormal: Above high normal; Units: mg/dL; Status: F Test: GLUCOSE, URINE (UA) MANUAL; Value: NEGATIVE; Range: NEGATIVE; Units: mg/dL; Status: F Test: KETONE, URINE MANUAL; Value: 2+; Range: NEGATIVE; Abnormal: Above high normal; Units: mg/dL; Status: F Test: UROBILINOGEN, URINE MANUAL; Value: NORMAL; Range: NORMAL; Units: mg/dl; Status: F Test: BILIRUBIN, URINE MANUAL; Value: NEGATIVE; Range: NEGATIVE; Status: F Test: NITRITE, URINE MANUAL; Value: TRACE; Range: NEGATIVE; Abnormal: Above high normal; Status: F Test: LEUKOCYTE ESTERASE, URINE MAN; Value: POSITIVE; Range: NEGATIVE; Abnormal: Above high normal; Status: F Test: BLOOD URINE MANUAL; Value: POSITIVE; Range: NEGATIVE; Abnormal: Above high normal; Status: F Lab Order: MICROSCOPIC, URINE; SPEC'M 03/04/16 19:35 Test: WBC, URINE; Value: 5-7; Range: 0-3; Abnormal: Above high normal; Units: /hpf; Status: F Test: RBC, URINE; Value: TNTC; Range: 0-3; Abnormal: Above high normal; Units: /hpf; Status: F Test: SQUAMOUS EPITHELIAL CELL URINE; Value: SMALL AMOUNT; Range: SMALL AMT; Units: /hpf; Status: F Test: BACTERIA, URINE; Value: SMALL AMOUNT; Range: NONE; Abnormal: Above high normal; Status: F Test: HYALINE CAST, URINE; Value: NONE SEEN; Range: 0-1; Units: /lpf; Status: F Test: MICROSCOPIC EXAM; Status: I Test: MUCUS, URINE; Value: SMALL AMOUNT; Range: NEGATIVE; Abnormal: Above high normal; Status: F Test: AMORPHOUS SEDIMENT, URINE; Value: LARGE AMOUNT; Range: NEGATIVE; Abnormal: Above high normal; Status: F Test: MICROSCOPIC EXAM; Value: PERFORMED; Status: F Outcome: 21:29 Discharge ordered by Provider. mo1 21:36 Discharge Assessment: Patient awake, alert and oriented x 3. No cognitive and/or ms18 functional deficits noted. Patient verbalized understanding of disposition instructions. patient administered narcotics - no. The following High Risk Discharge criteria are identified: None. Discharged to home ambulatory. Condition: good Condition: stable Condition: improved. Discharge instructions given to patient, Instructed on discharge instructions, follow up and referral plans. medication usage, Demonstrated understanding of instructions, medications, Pt was receptive of discharge instructions/ teaching. Prescriptions given X 2. No special radiology studies were completed. 21:38 Patient left the ED. ms18 Signatures: Rajeev Salguero RN RN ms2 Sapphire Cárdenas RN RN dls Jatin Maddox Rosemary, RN RN rs3 Justyna Hernandez, DIRECTOR INDUSTRIAL NURSING DIRECTOR INDUSTRIAL NURSING ar3 Donnie Kennedy PA PA mo1 Giovanna Stevens, DIRECTOR INDUSTRIAL NURSING DIRECTOR INDUSTRIAL NURSING elp Felicita Donahue, Director Of Special Services Unit Olivia Woods,RN RN ms18 Caroline Lala Corrections: (The following items were deleted from the chart) 19:44 19:42 LAB URINE TEST+LAB sent. ms2 EDMS 20:05 19:42 URINALYSIS+LAB sent. ms2 EDMS Chart Complete MTDD
== END 2016-03-04 21:38 | disposition home or self-care (01) ==
LOC: M ED 17:39
DX: N30.00 Acute cystitis without hematuria (principal); R11.2 Nausea with vomiting, unspecified; F17.210 Nicotine dependence, cigarettes, uncomplicated; Z79.3 Long term (current) use of hormonal contraceptives; Z88.0 Allergy status to penicillin
CPT/HCPCS: 80048; 80076; 81000; 81025; 83690; 84703; 85025; 96361; 96365; 96375; 99284; J1885; J2405

== ENCOUNTER → 2016-03-08 | Outpatient (REF) | payer OTHER | LOC: M SFHCWAGY 08:12 | PROVIDERS: ATTEND Nurse Practitioner Women's Health | DX: Z12.4 Encounter for screening for malignant neoplasm of cervix (principal) ==

== ENCOUNTER 2016-04-14 11:35 | Emergency (ER) | payer OTHER ==
--- NOTE | 2016-04-14 12:29 | REP ---
Clinical: Trauma . Comparison: None . Findings: The ventricles, sulci, and cisterns are normal in position and appearance. Bell-white differentiation is maintained. No acute intracranial hemorrhage, mass/mass effect, pathology or trauma/injury. No evidence for acute infarction. No extra-axial fluid collection. Calvarium is intact. Paranasal sinuses and mastoid air cells are clear. Impression: Normal noncontrast head CT. No evidence for acute intracranial pathology or trauma/injury. Signed by Bowen Sosa MD 04/14/2016 12:20 P
[2016-04-14] MEDS ORDERED: NORCO, ANEXSIA 5/325MG TABLET (HYDROcodone/ACETAMINOPHEN) As Ordered ONE (12:31)
--- NOTE | 2016-04-14 12:31 | REP ---
Clinical: Trauma . Technique: Axial noncontrast images from the skull base to the thoracic inlet with coronal and sagittal re-formations Findings: Straightening of normal lordosis may be secondary to positioning versus pain/spasm. Normal alignment is maintained. Cervical vertebral bodies including transverse processes and spinous processes are intact and there is no evidence for acute fracture / compression injury or subluxation. Spinal canal is patent. Posterior elements are intact. Paravertebral soft tissues are normal. Impression: Straightening of normal lordosis is nonspecific. No evidence for acute pathology or trauma/injury. Signed by Bowen Sosa MD 04/14/2016 12:22 P
--- NOTE | 2016-04-14 12:34 | REP ---
Clinical: Trauma . Technique: Internal rotation, external rotation, and Y view left shoulder . Findings: No acute fracture or dislocation. The acromioclavicular and glenohumeral joints are intact. No periarticular calcifications or degenerative changes are appreciated. Sub acromial space is normal. Surrounding soft tissues are unremarkable. Impression: No fracture or dislocation. Signed by Bowen Sosa MD 04/14/2016 12:25 P
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
== END 2016-04-14 13:01 | disposition home or self-care (01) ==
LOC: M ED 11:35
DX: S16.1XXA Strain of muscle, fascia and tendon at neck level, initial encounter (principal); S40.012A Contusion of left shoulder, initial encounter; V49.49XA Driver injured in collision with other motor vehicles in traffic accident, initial encounter; Y92.410 Unspecified street and highway as the place of occurrence of the external cause; Y93.89 Activity, other specified; Y99.8 Other external cause status; Z79.899 Other long term (current) drug therapy; Z88.0 Allergy status to penicillin; F17.210 Nicotine dependence, cigarettes, uncomplicated

== ENCOUNTER 2016-04-16 12:58 | Emergency (ER) | payer OTHER ==
[2016-04-16] MEDS ORDERED: ONDANSETRON 4MG/2ML VIAL (J2405) As Ordered ONE (14:19)
[2016-04-16] MEDS ORDERED: MORPHINE 4 MG/ML 1ML SYRINGE As Ordered ONE (14:19)
[2016-04-16 14:21] LABS: BASO % 0.4 % (0.0-1.0); EOS % 1.4 % (0.0-3.0); LARGE UNSTAINED CELL # 0.1 K/mm3 (0.0-0.4); LARGE UNSTAINED CELL % 2.8 % (0.0-4.0); LYMPH # 0.7 K/mm3 (1.5-6.5); LYMPH % 18.8 % (24.0-44.0); MEAN CORPUSCULAR HGB CONC 32.3 g/dl (32.0-36.5); MEAN CORPUSCULAR VOLUME 80.6 fl (80.0-96.0); MONO # 0.2 K/mm3 (0.0-0.8); NEUTROPHILS # 2.7 K/mm3 (1.8-7.7); NEUTROPHILS % 70.6 % (36.0-66.0); PLATELET COUNT, AUTOMATED 231 k/mm3 (150-450); RED CELL DISTRIBUTION WIDTH 13.8 % (11.5-14.5); WHITE BLOOD COUNT 3.8 K/mm3 (4.0-10.0)
[2016-04-16 14:52] LABS: ALBUMIN 3.6 GM/DL (3.2-5.2); ALBUMIN/GLOBULIN RATIO 1.03 (1.00-1.93); ALKALINE PHOSPHATASE 46 U/L (45-117); ALT/SGPT 19 U/L (12-78); AMYLASE 30 U/L (25-115); ANION GAP 8 MEQ/L (8-16); AST/SGOT 19 U/L (15-37); BILIRUBIN,DIRECT 0.1 MG/DL (0.0-0.2); BILIRUBIN,TOTAL 0.3 MG/DL (0.2-1.0); BLOOD UREA NITROGEN 9 MG/DL (7-18); CALCIUM LEVEL 7.9 MG/DL (8.5-10.1); CARBON DIOXIDE LEVEL 26 MEQ/L (21-32); CHLORIDE LEVEL 105 MEQ/L (98-107); CREATININE FOR GFR 0.68 MG/DL (0.55-1.02); GLOMERULAR FILTRATION RATE > 60.0 (>60); GLUCOSE, FASTING 94 MG/DL (70-105); POTASSIUM SERUM 4.2 MEQ/L (3.5-5.1); SODIUM LEVEL 139 MEQ/L (136-145); TOTAL PROTEIN 7.1 GM/DL (6.4-8.2)
[2016-04-16] MEDS ORDERED: ISOVUE-370 76% 100ML VIAL (Q9967) As Ordered ONE (15:06)
--- NOTE | 2016-04-16 16:07 | REP ---
CT ABDOMEN AND PELVIS WITH IV CONTRAST: TECHNIQUE: Axial contrast enhanced images from the lung bases to the pubic symphysis using 100 mL Isovue 370 intravenous contrast material with multiplanar reformations. Liver, spleen, adrenals, pancreas, and kidneys are normal in appearance with no evidence of visceral organ injury. There is no free air or free fluid. There is no adenopathy. Abdominal aorta is normal in caliber with no aneurysm or dissection. No bowel wall thickening is seen. No pelvic mass is seen. Visualized osseous structures are intact. IMPRESSION: Negative CT abdomen and pelvis with IV contrast. Signed by Alonso Bell MD 04/16/2016 05:00 P
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
== END 2016-04-16 16:18 | disposition home or self-care (01) ==
LOC: M ED 12:58
DX: S39.91XA Unspecified injury of abdomen, initial encounter (principal); F17.210 Nicotine dependence, cigarettes, uncomplicated; Z79.899 Other long term (current) drug therapy; Z88.0 Allergy status to penicillin; V49.60XA Unspecified car occupant injured in collision with unspecified motor vehicles in traffic accident, initial encounter; Y92.410 Unspecified street and highway as the place of occurrence of the external cause; Y93.89 Activity, other specified; Y99.9 Unspecified external cause status
CPT/HCPCS: 74177; 80048; 80076; 81025; 82150; 83690; 85025; 85610; 85730; 86850; 86900; 86901; 96374; 96375; 99284; J2405; Q9967

== ENCOUNTER → 2016-04-19 | Outpatient (REF) | payer OTHER | LOC: M SFHCWAGY 11:11 | PROVIDERS: ATTEND Nurse Practitioner Women's Health | DX: R30.0 Dysuria (principal); R35.0 Frequency of micturition ==

== ENCOUNTER → 2016-05-04 | Outpatient (CLI) | payer OTHER ==
--- NOTE | 2016-05-04 16:11 | REP ---
Pelvic sonography: History: Dyspareunia. Pelvic pain. Findings: Transabdominal and transvaginal scanning are performed. Uterine dimensions are normal at 8.5 x 3.4 x 5.2 cm. Endometrial echo is 0.5 cm thick and centrally placed. Right ovarian dimensions are 2.3 x 1.3 x 1.0 cm. Resistive index 0.5. The left ovary could not be identified either transabdominally or transvaginally. No left adnexal mass or cyst is seen. No free fluid is noted. There is a 2.3 x 1.7 x 1.5 cm left posterior uterine fibroid seen on transvaginal imaging. Impression: Small left posterior fibroid. Left ovary not directly visualized. Otherwise normal pelvic sonography.
== END ==
LOC: M WHC 11:21
PROVIDERS: ATTEND Nurse Practitioner Women's Health
DX: R10.2 Pelvic and perineal pain (principal); N94.10 Unspecified dyspareunia; N92.1 Excessive and frequent menstruation with irregular cycle

== ENCOUNTER → 2016-05-07 | Outpatient (REF) | payer OTHER | LOC: M SFHCWAGY 11:29 | PROVIDERS: ATTEND Nurse Practitioner Women's Health | DX: R10.2 Pelvic and perineal pain (principal) ==

== ENCOUNTER → 2016-05-08 | Outpatient (REF) | payer OTHER | LOC: M SFHCWAGY 12:49 | PROVIDERS: ATTEND Nurse Practitioner Women's Health | DX: Z11.3 Encounter for screening for infections with a predominantly sexual mode of transmission (principal) ==

== ENCOUNTER → 2016-05-16 | Outpatient (REF) | payer OTHER ==
[2016-05-16 19:20] LABS: MEAN CORPUSCULAR HEMOGLOBIN 25.6 pg (27.0-33.0); MEAN CORPUSCULAR HGB CONC 31.8 g/dl (32.0-36.5); MEAN CORPUSCULAR VOLUME 80.5 fl (80.0-96.0); WHITE BLOOD COUNT 4.9 K/mm3 (4.0-10.0)
== END ==
LOC: M SFHCPLAZ 16:10
PROVIDERS: ATTEND Family Medicine
DX: Z86.2 Personal history of diseases of the blood and blood-forming organs and certain disorders involving the immune mechanism (principal)

== ENCOUNTER → 2016-09-06 | Outpatient (REF) | payer OTHER ==
[~2016-09-06] MED LIST changes: +AZIT-12 PO; +CHERSYP3 PO; -COLA100C PO; +COLA100C5 PO; +LEXA1TAB PO; +PRED20TA PO; +TESS100C PO
[2016-09-06 11:37] LABS: MEAN CORPUSCULAR HEMOGLOBIN 26.1 pg (27.0-33.0); MEAN CORPUSCULAR HGB CONC 32.2 g/dl (32.0-36.5); MEAN CORPUSCULAR VOLUME 81.2 fl (80.0-96.0); WHITE BLOOD COUNT 5.1 K/mm3 (4.0-10.0)
[2016-09-06 11:46] LABS: INR 1.01
[2016-09-06 17:05] LABS: FREE T4 1.1 NG/DL (0.76-1.46)
== END ==
LOC: M SFHCPLAZ 08:00
PROVIDERS: ATTEND Family Medicine
DX: L65.9 Nonscarring hair loss, unspecified (principal); T14.8 Other injury of unspecified body region; Y92.89 Other specified places as the place of occurrence of the external cause

== ENCOUNTER 2017-06-04 14:18 | Day surgery (SDC) | payer OTHER ==
[2017-06-04] MEDS ORDERED: LR 1,000 ML IV ×2 (14:30→17:45)
[2017-06-04] MEDS ORDERED: KETOROLAC 60 MG/2 ML VIAL (J1885) As Ordered (14:39)
[2017-06-04] MEDS ORDERED: MIDAZOLAM INJ 2 MG/2 ML VIAL (J2250) As Ordered (14:39)
[2017-06-04] MEDS ORDERED: dexameTHASONE 4 MG/ML 1ML VIAL (J1100) As Ordered (14:39)
[2017-06-04] MEDS ORDERED: LIDOCAINE 2% INJ 100 MG/5 ML SDV (FOR ANES.) As Ordered (14:39)
[2017-06-04] MEDS ORDERED: PROPOFOL 200 MG/20 ML VIAL As Ordered (14:39)
[2017-06-04] MEDS ORDERED: ONDANSETRON 4MG/2ML VIAL (J2405) As Ordered (14:39)
[2017-06-04] MEDS ORDERED: fentaNYL 100 MCG/2 ML INJECTION (J3010) As Ordered ×2 (14:39→17:00)
[2017-06-04] MEDS ORDERED: HYDROmorphone HCL 2 MG/ML 1ML VIAL (J1170) As Ordered (14:39)
[2017-06-04] MEDS ORDERED: ROCURONIUM BROMIDE 50 MG/5 ML VIAL As Ordered (14:39)
[2017-06-04 14:40] LABS: CONTROL LINE UCG INT CTR LINE PRESENT; URINE PREG TEST NEGATIVE (NEGATIVE)
[2017-06-04] MEDS: LevoFLOXacin IV 500 MG in APPROPRIATE DILUENT 1 EA IV (15:58)
[2017-06-04] MEDS: BUPIVACAINE HCL 0.25% 30 ML VIAL As Ordered (16:30)
[2017-06-04] MEDS: LIDOCAINE 1% SDV INJ 30 ML VIAL As Ordered (16:30)
[2017-06-04] MEDS ORDERED: NEOSTIGMINE 10 MG/10 ML VIAL (J2710) As Ordered (16:50)
[2017-06-04] MEDS: fentaNYL 100 MCG/2 ML INJECTION (J3010) IV ×4 (17:09→17:24)
[2017-06-04] MEDS ORDERED: PERCOCET 5MG/325MG TAB As Ordered (17:19)
[2017-06-04] MEDS: PERCOCET 5MG/325MG TAB PO (17:27)
[2017-06-04] MEDS ORDERED: ONDANSETRON 4MG/2ML VIAL (J2405) IV ×2 (17:45)
[2017-06-04] MEDS ORDERED: NORCO, ANEXSIA 5/325MG TABLET (HYDROcodone/ACETAMINOPHEN) PO ×2 (17:45)
[2017-06-04] MEDS ORDERED: KETOROLAC 30 MG/ML VIAL (J1885) IV (21:00)
== END 2017-06-04 19:20 | disposition home or self-care (01) ==
LOC: M SDC 14:18
DX: K81.0 Acute cholecystitis (principal); D64.9 Anemia, unspecified; F17.210 Nicotine dependence, cigarettes, uncomplicated; Z79.899 Other long term (current) drug therapy; Z88.8 Allergy status to other drugs, medicaments and biological substances
CPT/HCPCS: 47562

== ENCOUNTER → 2017-06-21 | Outpatient (CLI) | payer OTHER ==
[~2017-06-21] MED LIST changes: -AZIT-12 PO; -CHERSYP3 PO; -COLA100C5 PO; +E-Z-GAS II EFFERVESCENT PACKET (SODIUM BICARB./CITRIC ACID/SIMETHICONE) As Ordered; +E-Z-HD 98% w/w 340GM SUSP BTL As Ordered; +E-Z-PAQUE 96% w/w SUSP 176GM BTL As Ordered; -FERR325T3 PO; -IBUP80TA PO; -LEXA1TAB PO; -PERCOCET PO; -PRED20TA PO; -TESS100C PO
== END ==
LOC: M RAD 09:41
DX: R11.2 Nausea with vomiting, unspecified (principal)
CPT/HCPCS: 74241

== ENCOUNTER 2018-04-20 05:09 | Emergency (ER) | payer OTHER ==
[~2018-04-20] VITALS: Ht 157.5 cm; Wt 68.2 kg
[~2018-04-20 05:09] MED LIST changes: +AZIT-12 PO; +CHERSYP3 PO; +CIPR-249 PO; +COLA100C5 PO; -E-Z-GAS II EFFERVESCENT PACKET (SODIUM BICARB./CITRIC ACID/SIMETHICONE) As Ordered; -E-Z-HD 98% w/w 340GM SUSP BTL As Ordered; -E-Z-PAQUE 96% w/w SUSP 176GM BTL As Ordered; +FERR325T3 PO; +IBUP80TA PO; +JOLETAB PO; +LEXA1TAB PO; +NORC1TAB4 PO; +PERCOCET PO; +PRED20TA PO; +TESS100C PO; +ZOFR4TAB14 PO
[2018-04-20] MEDS ORDERED: METOCLOPRAMIDE INJ 10MG/2ML VIAL (J2765) IV ONE (05:30)
[2018-04-20] MEDS ORDERED: NS 1,000 ML IV ONE (05:30)
[2018-04-20] MEDS ORDERED: GASTROGRAFIN SOLUTION 30ML (Q9963) As Ordered ONE (05:38)
[2018-04-20] MEDS: GASTROGRAFIN SOLUTION 30ML PO SCH ×2 (05:44→06:24)
[2018-04-20 05:46] LABS: BASO % 0.3 % (0.0-1.0); EOS # 0.1 10^3/uL (0.0-0.50); EOS % 1.3 % (0.0-3.0); HEMATOCRIT 45.1 % (36.0-47.0); HEMOGLOBIN 15.5 g/dl (12.0-15.5); LYMPH # 0.8 10^3/uL (1.5-6.5); LYMPH % 8.7 % (24.0-44.0); MEAN CORPUSCULAR HEMOGLOBIN 30.8 pg (27.0-33.0); MEAN CORPUSCULAR HGB CONC 34.4 g/dl (32.0-36.5); MEAN CORPUSCULAR VOLUME 89.5 fl (80.0-96.0); MONO # 0.6 10^3/uL (0.0-0.8); MONO % 6.8 % (0.0-5.0); NEUTROPHILS # 7.2 10^3/uL (1.8-7.7); NEUTROPHILS % 82.7 % (36.0-66.0); PLATELET COUNT, AUTOMATED 285 10^3/uL (150-450); RED BLOOD COUNT 5.04 10^6/uL (4.00-5.40); WHITE BLOOD COUNT 8.7 10^3/uL (4.0-10.0)
[2018-04-20 05:50] LABS: APPEARANCE, URINE HAZY (CLEAR); BACTERIA, URINE AUTO 1+ (NEGATIVE); BILIRUBIN, URINE AUTO NEGATIVE (NEGATIVE); BLOOD, URINE BLOOD 1+ (NEGATIVE); COLOR, URINE YELLOW (YELLOW); GLUCOSE, URINE (UA) AUTO NEGATIVE (NEGATIVE); KETONE, URINE AUTO NEGATIVE (NEGATIVE); LEUKOCYTE ESTERASE, URINE AUTO 2+ (NEGATIVE); MUCUS, URINE SMALL (NEGATIVE); NITRITE, URINE AUTO NEGATIVE (NEGATIVE); PROTEIN, URINE AUTO NEGATIVE (NEGATIVE); RBC, URINE AUTO 5 /HPF (0-3); SPECIFIC GRAVITY URINE AUTO 1.025 (1.002-1.035); SQUAMOUS EPITHELIAL CELL UR AU 4 /HPF (0-6); WBC, URINE AUTO 11 /HPF (0-3)
[2018-04-20] MEDS ORDERED: MORPHINE 4 MG/ML 1ML VIAL/SYRINGE (J2270) IV ONE (06:00)
[2018-04-20 06:11] LABS: HCG, SERUM QUALITATIVE NEGATIVE (NEGATIVE)
[2018-04-20 06:12] LABS: ALBUMIN 3.9 GM/DL (3.2-5.2); ALT/SGPT 31 U/L (12-78); BILIRUBIN,DIRECT 0.2 MG/DL (0.0-0.2); BILIRUBIN,TOTAL 0.7 MG/DL (0.2-1.0); BLOOD UREA NITROGEN 14 MG/DL (7-18); CALCIUM LEVEL 8.8 MG/DL (8.5-10.1); CARBON DIOXIDE LEVEL 24 MEQ/L (21-32); CHLORIDE LEVEL 106 MEQ/L (98-107); CREATININE FOR GFR 0.72 MG/DL (0.55-1.30); GLOMERULAR FILTRATION RATE > 60.0 (>60); GLUCOSE, FASTING 96 MG/DL (70-100); LIPASE 139 U/L (73-393); POTASSIUM SERUM 4.6 MEQ/L (3.5-5.1); SODIUM LEVEL 139 MEQ/L (136-145); TOTAL PROTEIN 7.6 GM/DL (6.4-8.2)
[2018-04-20] MEDS ORDERED: ISOVUE-370 76% 100ML VIAL (Q9967) As Ordered ONE (07:28)
--- NOTE | 2018-04-20 08:11 | REP ---
Clinical: Abdominal pain. Technique: Axial contrast enhanced images from the lung bases to the pubic symphysis using oral (per protocol) and 100 ml Isovue 370 intravenous contrast material with coronal and sagittal re-formations. Comparison: 05/27/2017. Findings: Lung bases are clear. Visualized heart and pericardium normal. Liver, spleen, pancreas, bilateral adrenal glands and kidneys are normal. Evidence for prior cholecystectomy with compensatory intrahepatic and extrahepatic biliary ductal dilatation noted. The enteric system is without obstruction or acute inflammatory process. Normal terminal ileum and appendix identified in the right lower quadrant. Pelvis demonstrates normal bladder and age-appropriate uterus/adnexa. No ascites. No free air. No adenopathy. Abdominal aorta without aneurysm. Musculoskeletal structures are intact. Impression: No acute abdominopelvic pathology appreciated. Status post cholecystectomy. Electronically Signed by Bowen Sosa MD 04/20/2018 08:02 A
[2018-04-20] MEDS ORDERED: SUCRALFATE SUSP 1GM/10ML UD PO ONE (08:45)
[2018-04-20] MEDS ORDERED: SUCR1SS PO (08:47)
[2018-04-20] MEDS ORDERED: PEPC1TAB5 PO (08:48)
[2018-04-20 09:06] VITALS: BP 117/69
== END 2018-04-20 09:11 | disposition home or self-care (01) ==
LOC: M ED 05:09
DX: R10.9 Unspecified abdominal pain (principal); Z79.3 Long term (current) use of hormonal contraceptives; Z88.0 Allergy status to penicillin
CPT/HCPCS: 74177; 80048; 80076; 81001; 83690; 84703; 85025; 87088; 96374; 96375; 99284; J2270; J2765; Q9967

== ENCOUNTER 2018-08-11 21:47 | Emergency (ER) | payer OTHER ==
[~2018-08-11] VITALS: Ht 154.9 cm; Wt 68.2 kg
[~2018-08-11 21:47] MED LIST changes: -NORC1TAB4 PO; +NORC1TAB7 PO; +PEPC1TAB5 PO; +SUCR1SS PO
--- NOTE | 2018-08-11 22:43 | REPVR ---
EXAM: CT Head Without Contrast EXAM DATE/TIME: 08/11/2018 10:15 PM CLINICAL HISTORY: 27 years old, female; Pain; Headache; Migraine; Additional info: Migraine with neuro deficits TECHNIQUE: Imaging protocol: Axial computed tomography images of the head without contrast. Radiation optimization: All CT scans at this facility use at least one of these dose optimization techniques: automated exposure control; mA and/or kV adjustment per patient size (includes targeted exams where dose is matched to clinical indication); or iterative reconstruction. COMPARISON: CT Head without contrast 04/14/2016 12:12 PM FINDINGS: Brain: No CT evidence of acute intracranial hemorrhage or acute territorial infarction. No significant mass effect or midline shift. Basal cisterns patent. Ventricles: Normal in size and configuration. Bones/joints: No acute osseous abnormality. Sinuses: Minimal ethmoid and right sphenoid sinus mucosal thickening. Mastoid air cells: Grossly unremarkable. Soft tissues: Grossly unremarkable. IMPRESSION: 1. No CT evidence of acute intracranial pathology. 2. Additional findings, as above. Electronically signed by: Donnie Diaz On 08/11/2018 22:43:31 PM
[2018-08-11] MEDS ORDERED: diphenhydrAMINE INJ 50MG/ML VIAL (J1200) IV ONE (23:00)
[2018-08-11] MEDS ORDERED: KETOROLAC 30 MG/ML VIAL (J1885) IV ONE (23:00)
[2018-08-11] MEDS ORDERED: NS 1,000 ML IV ONE (23:00)
[2018-08-11] MEDS ORDERED: METOCLOPRAMIDE INJ 10MG/2ML VIAL (J2765) IV ONE (23:00)
[2018-08-12 02:07] VITALS: BP 130/76
== END 2018-08-12 02:06 | disposition home or self-care (01) ==
LOC: M ED 21:47
DX: G43.809 Other migraine, not intractable, without status migrainosus (principal); F17.210 Nicotine dependence, cigarettes, uncomplicated; Z88.0 Allergy status to penicillin; Z79.3 Long term (current) use of hormonal contraceptives
CPT/HCPCS: 36415; 70450; 96361; 96374; 96375; 99284; J1200; J1885; J2765

== ENCOUNTER 2018-09-29 22:12 | Emergency (ER) | payer OTHER ==
[~2018-09-29] VITALS: Ht 162.6 cm; Wt 68.6 kg
[2018-09-29 22:13] VITALS: BP 147/83
== END 2018-09-30 00:32 | disposition left against medical advice (07) ==
LOC: M ED 22:12
DX: R51 Headache (principal); Z53.21 Procedure and treatment not carried out due to patient leaving prior to being seen by health care provider

== ENCOUNTER → 2019-01-21 | Outpatient (REF) | payer OTHER ==
[2019-01-21 19:06] LABS: HEMATOCRIT 45.2 % (36.0-47.0); HEMOGLOBIN 14.8 g/dl (12.0-15.5); MEAN CORPUSCULAR HEMOGLOBIN 31.2 pg (27.0-33.0); MEAN CORPUSCULAR HGB CONC 32.7 g/dl (32.0-36.5); MEAN CORPUSCULAR VOLUME 95.2 fl (80.0-96.0); PLATELET COUNT, AUTOMATED 336 10^3/uL (150-450); RED BLOOD COUNT 4.75 10^6/uL (4.00-5.40); WHITE BLOOD COUNT 7.6 10^3/uL (4.0-10.0)
[2019-01-21 19:16] LABS: THYROID STIMULATING HORMONE 0.642 uIU/ML (0.358-3.740)
[2019-01-21 19:21] LABS: TOTAL 25(OH) VITAMIN D 21.5 NG/ML (30.0-100.0)
== END ==
LOC: M SFHCPLAZ 14:49
PROVIDERS: ATTEND Family Medicine
DX: R53.83 Other fatigue (principal); E55.9 Vitamin D deficiency, unspecified

== ENCOUNTER → 2019-11-13 | Outpatient (CLI) | payer OTHER | LOC: M LABSMTC 10:58 | PROVIDERS: ATTEND Family Medicine | DX: Z20.828 Contact with and (suspected) exposure to other viral communicable diseases (principal) | CPT/HCPCS: C9803; U0003 ==

== ENCOUNTER → 2020-10-26 | Outpatient (REF) | payer OTHER | LOC: M SFHCWAGY 12:56 | PROVIDERS: ATTEND Nurse Practitioner Women's Health | DX: Z12.4 Encounter for screening for malignant neoplasm of cervix (principal); N89.8 Other specified noninflammatory disorders of vagina ==

== ENCOUNTER 2021-12-18 22:02 | Emergency (ER) | payer OTHER ==
[~2021-12-18] VITALS: Ht 154.9 cm; Wt 70.5 kg
[2021-12-18 22:02] VITALS: BP 136/89
[2021-12-18 22:35] LABS: URINE PREG TEST NEGATIVE (NEGATIVE)
[2021-12-18 22:48] LABS: BASO % 0.5 % (0.0-1.0); EOS # 0.2 10^3/uL (0.0-0.5); EOS % 2.1 % (0.0-3.0); HEMATOCRIT 40.2 % (36.0-47.0); HEMOGLOBIN 14.2 g/dl (12.0-15.5); LYMPH # 2.7 10^3/uL (1.5-5.0); LYMPH % 31.4 % (24.0-44.0); MEAN CORPUSCULAR HGB CONC 35.3 g/dl (32.0-36.5); MEAN CORPUSCULAR VOLUME 90.5 fl (80.0-96.0); MONO # 0.8 10^3/uL (0.0-0.8); MONO % 9.4 % (2.0-8.0); NEUTROPHILS # 4.8 10^3/uL (1.5-8.5); NEUTROPHILS % 56.4 % (36.0-66.0); PLATELET COUNT, AUTOMATED 263 10^3/uL (150-450); RED BLOOD COUNT 4.44 10^6/uL (4.00-5.40); WHITE BLOOD COUNT 8.5 10^3/uL (4.0-10.0)
[2021-12-18 23:26] LABS: ALBUMIN 3.7 GM/DL (3.2-5.2); ALT/SGPT 84 U/L (12-78); BILIRUBIN,DIRECT 0.2 MG/DL (0.0-0.2); BILIRUBIN,TOTAL 0.6 MG/DL (0.2-1.0); BLOOD UREA NITROGEN 8 MG/DL (7-18); CALCIUM LEVEL 8.8 MG/DL (8.5-10.1); CARBON DIOXIDE LEVEL 27 MEQ/L (21-32); CHLORIDE LEVEL 103 MEQ/L (98-107); CREATININE FOR GFR 0.75 MG/DL (0.55-1.30); GLOMERULAR FILTRATION RATE > 60.0 (>60); GLUCOSE, FASTING 99 MG/DL (70-100); LIPASE 79 U/L (73-393); SODIUM LEVEL 135 MEQ/L (136-145); TOTAL PROTEIN 7.4 GM/DL (6.4-8.2)
== END 2021-12-19 00:18 | disposition left against medical advice (07) ==
LOC: M ED 22:02
DX: Z53.21 Procedure and treatment not carried out due to patient leaving prior to being seen by health care provider (principal)

== ENCOUNTER → 2021-12-19 | Outpatient (REF) | payer OTHER ==
[2021-12-19 12:57] LABS: APPEARANCE, URINE MANUAL CLEAR (CLEAR); COLOR, URINE MANUAL LT YELLOW (YELLOW); SPECIFIC GRAVITY,URINE MANUAL 1.001 (1.002-1.035)
[2021-12-19 12:58] LABS: BILIRUBIN, URINE MANUAL NEGATIVE (NEGATIVE); BLOOD URINE MANUAL NEGATIVE (NEGATIVE); GLUCOSE, URINE (UA) MANUAL NEGATIVE (NEGATIVE); KETONE, URINE MANUAL NEGATIVE (NEGATIVE); LEUKOCYTE ESTERASE, URINE MAN POSITIVE (NEGATIVE); NITRITE, URINE MANUAL NEGATIVE (NEGATIVE); PROTEIN, URINE MANUAL NEGATIVE (NEGATIVE); UROBILINOGEN, URINE MANUAL NORMAL (NORMAL)
[2021-12-19 13:09] LABS: BACTERIA, URINE SMALL AMOUNT; HYALINE CAST, URINE NONE SEEN /lpf (0-1); MUCUS, URINE SMALL AMOUNT (NEGATIVE); RBC, URINE 0-1 /hpf (0-3); SQUAMOUS EPITHELIAL CELL URINE MOD AMOUNT /hpf (SMALL AMT)
== END ==
LOC: M LAB REF 12:03
PROVIDERS: ATTEND Physician Assistant Medical
DX: N39.0 Urinary tract infection, site not specified (principal)

== ENCOUNTER 2022-06-17 00:03 | Emergency (ER) | payer OTHER ==
[~2022-06-17] VITALS: Ht 154.9 cm; Wt 71.9 kg
[2022-06-17 02:16] LABS: BASO # 0.1 10^3/uL (0.0-0.2); BASO % 0.6 % (0.0-1.0); EOS # 0.1 10^3/uL (0.0-0.5); EOS % 1.7 % (0.0-3.0); HEMATOCRIT 35.7 % (36.0-47.0); HEMOGLOBIN 12.5 g/dl (12.0-15.5); LYMPH # 1.9 10^3/uL (1.5-5.0); LYMPH % 23.6 % (24.0-44.0); MEAN CORPUSCULAR HEMOGLOBIN 31.6 pg (27.0-33.0); MEAN CORPUSCULAR VOLUME 90.2 fl (80.0-96.0); MONO # 0.7 10^3/uL (0.0-0.8); NEUTROPHILS # 5.3 10^3/uL (1.5-8.5); NEUTROPHILS % 65.9 % (36.0-66.0); PLATELET COUNT, AUTOMATED 260 10^3/uL (150-450); RED BLOOD COUNT 3.96 10^6/uL (4.00-5.40); WHITE BLOOD COUNT 8.1 10^3/uL (4.0-10.0)
[2022-06-17 02:46] LABS: BLOOD UREA NITROGEN 6 MG/DL (9-23); CALCIUM LEVEL 8.5 MG/DL (8.5-10.1); CARBON DIOXIDE LEVEL 24 MMOL/L (20-31); CHLORIDE LEVEL 106 MMOL/L (98-107); CREATININE FOR GFR 0.51 MG/DL (0.55-1.30); GLOMERULAR FILTRATION RATE > 60.0 (>60); GLUCOSE, FASTING 99 MG/DL (60-100); POTASSIUM SERUM 3.8 MMOL/L (3.5-5.1); SODIUM LEVEL 137 MMOL/L (136-145)
[2022-06-17 02:59] LABS: HCG, SERUM QUANTITATIVE 93092.8 MIU/ML (<4.2)
[2022-06-17 05:25] VITALS: BP 110/51
== END 2022-06-17 05:30 | disposition home or self-care (01) ==
LOC: M ED 00:03
DX: O20.0 Threatened abortion (principal); G43.909 Migraine, unspecified, not intractable, without status migrainosus; Z87.891 Personal history of nicotine dependence; Z88.0 Allergy status to penicillin; Z3A.08 8 weeks gestation of pregnancy

== ENCOUNTER → 2022-06-21 | Outpatient (CLI) | payer OTHER ==
[2022-06-21 14:15] LABS: HEMATOCRIT 38.8 % (36.0-47.0); HEMOGLOBIN 13.2 g/dl (12.0-15.5); MEAN CORPUSCULAR HEMOGLOBIN 31.4 pg (27.0-33.0); MEAN CORPUSCULAR VOLUME 92.4 fl (80.0-96.0); PLATELET COUNT, AUTOMATED 275 10^3/uL (150-450); WHITE BLOOD COUNT 7.9 10^3/uL (4.0-10.0)
[2022-06-21 14:19] LABS: LDH LACTATE DEHYDROGENASE 134 U/L (120-246)
[2022-06-21 14:20] LABS: ALT/SGPT 41 U/L (7.0-40); AST/SGOT 16 U/L (<34); BILIRUBIN,TOTAL 0.5 MG/DL (0.3-1.2); CREATININE FOR GFR 0.51 MG/DL (0.55-1.30); GLOMERULAR FILTRATION RATE > 60.0 (>60)
[2022-06-21 14:34] LABS: CREATININE,RANDOM URINE 16.8 MG/DL
[2022-06-21 14:44] LABS: HIV 1&2 SCREEN CENTAUR NEGATIVE (NEGATIVE)
[2022-06-21 14:47] LABS: TOTAL PROTEIN,RANDOM URINE < 6.0 MG/DL (0.0-14.0)
[2022-06-21 14:55] LABS: URIC ACID 3.6 MG/DL (3.1-7.8)
[2022-06-21 14:58] LABS: GC DNA AMPLIFICATION NEGATIVE (NEGATIVE)
== END ==
LOC: M PLALAB 10:23
PROVIDERS: ATTEND Advanced Practice Midwife
DX: Z34.83 Encounter for supervision of other normal pregnancy, third trimester (principal)

== ENCOUNTER → 2022-08-29 | Outpatient (CLI) | payer OTHER | LOC: M WHC 10:01 | PROVIDERS: ATTEND Advanced Practice Midwife | DX: Z34.82 Encounter for supervision of other normal pregnancy, second trimester (principal); Z3A.19 19 weeks gestation of pregnancy ==

== ENCOUNTER → 2022-09-27 | Outpatient (CLI) | payer OTHER | LOC: M WHC 10:00 | PROVIDERS: ATTEND Obstetrics & Gynecology | DX: O34.211 Maternal care for low transverse scar from previous cesarean delivery (principal) ==

== ENCOUNTER → 2022-10-11 | Outpatient (CLI) | payer OTHER | LOC: M WHC 12:11 | PROVIDERS: ATTEND Specialist | DX: Z34.82 Encounter for supervision of other normal pregnancy, second trimester (principal) ==

== ENCOUNTER → 2022-11-01 | Outpatient (CLI) | payer OTHER ==
[2022-11-01 14:25] LABS: HEMATOCRIT 30.9 % (36.0-47.0); HEMOGLOBIN 10.5 g/dl (12.0-15.5); MEAN CORPUSCULAR HEMOGLOBIN 31.7 pg (27.0-33.0); MEAN CORPUSCULAR VOLUME 93.4 fl (80.0-96.0); PLATELET COUNT, AUTOMATED 228 10^3/uL (150-450); RED BLOOD COUNT 3.31 10^6/uL (4.00-5.40); WHITE BLOOD COUNT 7.4 10^3/uL (4.0-10.0)
[2022-11-01 16:11] LABS: GC DNA AMPLIFICATION NEGATIVE (NEGATIVE)
== END ==
LOC: M PLALAB 08:38
PROVIDERS: ATTEND Specialist
DX: Z34.82 Encounter for supervision of other normal pregnancy, second trimester (principal)

== ENCOUNTER 2022-11-26 16:44 | Outpatient (CLI) | payer OTHER ==
[~2022-11-26] VITALS: Ht 154.9 cm; Wt 83.5 kg
[2022-11-26] MEDS ORDERED: FAMO10TA50 PO (16:55)
[2022-11-26] MEDS ORDERED: TUMS750C22 PO (16:55)
[2022-11-26] MEDS ORDERED: PRENTAB9 PO (16:55)
[2022-11-26 17:01] VITALS: BP 132/88
[2022-11-26] MEDS ORDERED: ONDANSETRON 4MG ORAL DISINTEGRATING TAB SL ONE (17:05)
[2022-11-26] MEDS ORDERED: HOME MED LIST COMPLETE! XX SCH (17:05)
[2022-11-26 17:13] VITALS: BP 124/76
[2022-11-26 17:40] LABS: CREATININE,RANDOM URINE 46.8 MG/DL
[2022-11-26 17:43] VITALS: BP 128/75
[2022-11-26 17:48] LABS: BASO % 0.5 % (0.0-1.0); EOS # 0.1 10^3/uL (0.0-0.5); EOS % 1.6 % (0.0-3.0); HEMATOCRIT 28.3 % (36.0-47.0); HEMOGLOBIN 9.7 g/dl (12.0-15.5); LYMPH # 1.8 10^3/uL (1.5-5.0); LYMPH % 21.2 % (24.0-44.0); MEAN CORPUSCULAR HEMOGLOBIN 30.4 pg (27.0-33.0); MEAN CORPUSCULAR HGB CONC 34.3 g/dl (32.0-36.5); MEAN CORPUSCULAR VOLUME 88.7 fl (80.0-96.0); MONO # 0.7 10^3/uL (0.0-0.8); NEUTROPHILS # 5.8 10^3/uL (1.5-8.5); NEUTROPHILS % 67.1 % (36.0-66.0); PLATELET COUNT, AUTOMATED 241 10^3/uL (150-450); RED BLOOD COUNT 3.19 10^6/uL (4.00-5.40); WHITE BLOOD COUNT 8.6 10^3/uL (4.0-10.0)
[2022-11-26 18:01] LABS: TOTAL PROTEIN,RANDOM URINE < 6.0 MG/DL (0.0-14.0)
[2022-11-26 18:05] LABS: LDH LACTATE DEHYDROGENASE 178 U/L (120-246)
[2022-11-26 18:06] LABS: ALT/SGPT 12 U/L (7.0-40); AST/SGOT 13 U/L (<34); BILIRUBIN,TOTAL 0.4 MG/DL (0.3-1.2); CREATININE FOR GFR 0.46 MG/DL (0.55-1.30); GLOMERULAR FILTRATION RATE > 60.0 (>60)
[2022-11-26] MEDS ORDERED: FERR324T21 PO (18:47)
[2022-11-26] MEDS ORDERED: DOCU-153 PO (18:47)
== END 2022-11-26 18:48 | disposition home or self-care (01) ==
LOC: M LDO 16:44
PROVIDERS: ATTEND Advanced Practice Midwife
DX: O26.893 Other specified pregnancy related conditions, third trimester (principal); R03.0 Elevated blood-pressure reading, without diagnosis of hypertension; O34.218 Maternal care for other type scar from previous cesarean delivery; O99.013 Anemia complicating pregnancy, third trimester; O98.513 Other viral diseases complicating pregnancy, third trimester; D50.9 Iron deficiency anemia, unspecified; U07.1 COVID-19; Z88.0 Allergy status to penicillin; Z87.59 Personal history of other complications of pregnancy, childbirth and the puerperium; Z3A.31 31 weeks gestation of pregnancy
CPT/HCPCS: 36415; 59025; 82247; 82565; 82570; 83615; 84156; 84450; 84460; 84550; 85025; 87486; 87581; 87633; 87798; G0463

== ENCOUNTER → 2022-11-30 | Outpatient (CLI) | payer OTHER ==
[~2022-11-30] MED LIST changes: +DOCU-153 PO; +FAMO10TA50 PO; +FERR324T21 PO; +PRENTAB9 PO; +TUMS750C22 PO
== END ==
LOC: M LAB 07:04
PROVIDERS: ATTEND Advanced Practice Midwife
DX: O99.810 Abnormal glucose complicating pregnancy (principal)

== ENCOUNTER 2022-12-12 18:20 | Inpatient (IN) | payer OTHER ==
[~2022-12-12] VITALS: Ht 154.9 cm; Wt 83.8 kg
[2022-12-12] MEDS ORDERED: OMEP40CA4 PO (18:49)
[2022-12-12] MEDS ORDERED: HOME MED LIST COMPLETE! XX SCH (18:50)
[2022-12-12 18:52] VITALS: BP 147/80
[2022-12-12] MEDS ORDERED: OXYTOCIN DRIP 30 UNITS in IV 1 EA IV PRN ×4 (19:20)
[2022-12-12] MEDS ORDERED: OXYTOCIN INJ 10UNITS/ML 1ML VIAL IM PRN (19:20)
[2022-12-12] MEDS ORDERED: ONDANSETRON 4MG 2ML VIAL IV PRN (19:20)
[2022-12-12] MEDS ORDERED: AZITHROMYCIN 250MG TABLET PO ONE (19:20)
[2022-12-12] MEDS ORDERED: TRANEXAMIC ACID INJection 1,000 MG in NS 100 ML IV PRN (19:20)
[2022-12-12] MEDS ORDERED: CARBOPROST TROMETHAMINE 250 MCG/ML AMP IM PRN (19:20)
[2022-12-12 19:21] LABS: HEMATOCRIT 28.6 % (36.0-47.0); MEAN CORPUSCULAR VOLUME 88.5 fl (80.0-96.0); PLATELET COUNT, AUTOMATED 206 10^3/uL (150-450); RED BLOOD COUNT 3.23 10^6/uL (4.00-5.40); WHITE BLOOD COUNT 9.2 10^3/uL (4.0-10.0)
[2022-12-12] MEDS: BETAMETHASONE SOLUSPAN 6MG/ML 5ML VIAL IM SCH (19:50)
[2022-12-12] MEDS ORDERED: ceFAZolin SOD 2 GM in IV 1 EA IV ONE (20:00)
[2022-12-12 21:12] VITALS: BP 120/56
[2022-12-12 23:56] LABS: LDH LACTATE DEHYDROGENASE 222 U/L (120-246)
[2022-12-12 23:57] LABS: ALT/SGPT < 9 U/L (7.0-40); AST/SGOT 17 U/L (<34); BILIRUBIN,TOTAL 0.5 MG/DL (0.3-1.2); CREATININE FOR GFR 0.43 MG/DL (0.55-1.30); GLOMERULAR FILTRATION RATE > 60.0 (>60)
[2022-12-13] VITALS (53 sets, daily range): BP systolic 78–144; BP diastolic 38–81; O2SAT 93–100
[2022-12-13 00:14] LABS: URIC ACID 4.5 MG/DL (3.1-7.8)
[2022-12-13] MEDS ORDERED: NALBUPHINE HCL 1MG/0.1ML (100MG/10ML) MDV IV ONE (02:45)
[2022-12-13] MEDS: ceFAZolin SOD 1 GM in D5W MINI-BAG PLUS 50 ML IV SCH ×3 (04:23→19:41)
[2022-12-13] MEDS: LR 1,000 ML IV SCH ×4 (06:39→23:07)
[2022-12-13] MEDS ORDERED: NALOXONE INJ 0.4MG/1ML VIAL IV PRN (13:35)
[2022-12-13] MEDS ORDERED: ONDANSETRON 4MG 2ML VIAL IV PRN (13:35)
[2022-12-13] MEDS ORDERED: EPIDURAL/PCA KEYS XX PRN (13:35)
[2022-12-13] MEDS ORDERED: diphenhydrAMINE 50MG/ML VIAL IV PRN (13:35)
[2022-12-13] MEDS: FENTANYL/ROPIVACAINE/NACL BAG 100 ML EPIDURAL SCH ×2 (14:30→23:06)
[2022-12-13] MEDS: LR 500 ML IV PRN ×2 (15:22→23:07)
[2022-12-13] MEDS: ePHEDrine SULFATE 25 MG/5 ML(5MG/ML) SYRINGE IVP PRN ×3 (15:26→22:09)
[2022-12-13] MEDS: BETAMETHASONE SOLUSPAN 6MG/ML 5ML VIAL IM SCH (19:02)
[2022-12-13] MEDS ORDERED: ePHEDrine SULFATE 25 MG/5 ML(5MG/ML) SYRINGE As Ordered ONE (22:40)
[2022-12-14] VITALS (29 sets, daily range): BP systolic 91–142; BP diastolic 50–78; O2SAT 96–97
[2022-12-14] MEDS: LR 1,000 ML IV SCH (04:17)
[2022-12-14] MEDS: ceFAZolin SOD 1 GM in D5W MINI-BAG PLUS 50 ML IV SCH ×2 (04:18→08:32)
[2022-12-14] MEDS ORDERED: OXYTOCIN DRIP 30 UNITS in IV 1 EA IV SCH (05:05)
[2022-12-14] MEDS ORDERED: LR 1,000 ML IV SCH (05:05)
[2022-12-14] MEDS: FENTANYL/ROPIVACAINE/NACL BAG 100 ML EPIDURAL SCH (08:58)
[2022-12-14 10:18] LABS: CORD GAS ABE A -4.8; CORD GAS ABE V -3.1; CORD GAS HCO3 A 22.2 MMOL/L; CORD GAS HCO3 V 20.9 MMOL/L; CORD GAS O2 SAT A 48.3 %; CORD GAS O2 SAT V 85.1 %; CORD GAS PCO2 A 48.5 mmHg; CORD GAS PCO2 V 34.7 mmHg; CORD GAS PH A 7.279 UNITS; CORD GAS PH V 7.398 UNITS; CORD GAS PO2 A 20.9 mmHg; CORD GAS PO2 V 36.2 mmHg; CORD GAS SBC A 19.4 MMOL/L; CORD GAS SBC V 21.6 MMOL/L; CORD GAS TCO2 A 23.7 MMOL/L
[2022-12-14] MEDS ORDERED: LIDOCAINE 1% MDV 20ML VIAL As Ordered ONE (10:30)
[2022-12-14] MEDS ORDERED: IBUPROFEN 800 MG TAB PO PRN (10:55)
[2022-12-14] MEDS ORDERED: IBUPROFEN 600MG TAB PO PRN (10:55)
[2022-12-14] MEDS ORDERED: MOM 30ML SUSPENSION UDC PO PRN (10:55)
[2022-12-14] MEDS ORDERED: METHYLERGONOVINE MALEATE 0.2 MG TAB PO PRN (10:55)
[2022-12-14] MEDS ORDERED: ANUSOL HC CREAM 30GM TOP PRN (10:55)
[2022-12-14] MEDS ORDERED: ACETAMINOPHEN 500 MG TAB PO PRN (10:55)
[2022-12-14] MEDS ORDERED: DIBUCAINE 1% OINTMENT 30GM TOP PRN (10:55)
[2022-12-14] MEDS ORDERED: RHOGAM 300MCG (1500IU) INJ IM SCH (10:55)
[2022-12-14] MEDS ORDERED: ACETAMINOPHEN TAB 650MG DOSE (2X325MG) PO PRN (10:55)
[2022-12-14] MEDS ORDERED: METHYLERGONOVINE MALEATE 0.2MG/ML 1ML VIAL IM ONE (12:15)
[2022-12-14] MEDS: DOCUSATE SODIUM 100MG CAPSULE PO SCH (20:15)
[2022-12-15 05:28] LABS: HEMATOCRIT 22.4 % (36.0-47.0); HEMOGLOBIN 7.5 g/dl (12.0-15.5); MEAN CORPUSCULAR HEMOGLOBIN 30.4 pg (27.0-33.0); MEAN CORPUSCULAR HGB CONC 33.5 g/dl (32.0-36.5); MEAN CORPUSCULAR VOLUME 90.7 fl (80.0-96.0); PLATELET COUNT, AUTOMATED 154 10^3/uL (150-450); RED BLOOD COUNT 2.47 10^6/uL (4.00-5.40); WHITE BLOOD COUNT 9.3 10^3/uL (4.0-10.0)
[2022-12-15 05:58] VITALS: BP 122/66; O2SAT 100
[2022-12-15] MEDS: PRENATAL VITAMINS CHEWABLE TABLET PO SCH (09:33)
[2022-12-15] MEDS: DOCUSATE SODIUM 100MG CAPSULE PO SCH ×2 (09:33→21:06)
[2022-12-15 17:58] VITALS: BP 122/60; O2SAT 98
[2022-12-16 05:41] VITALS: BP 131/73; O2SAT 98
[2022-12-16] MEDS ORDERED: MEASLES,MUMPS,RUBELLA VACCINE INJ (MMR-II) SC.IMMUN ONE (09:00)
[2022-12-16] MEDS: PRENATAL VITAMINS CHEWABLE TABLET PO SCH (09:38)
[2022-12-16] MEDS: DOCUSATE SODIUM 100MG CAPSULE PO SCH (09:38)
[2022-12-16] MEDS ORDERED: IBUP80TA PO (11:07)
[2022-12-16] MEDS ORDERED: ACET-683 PO (11:07)
== END 2022-12-16 12:53 | disposition home or self-care (01) | DRG 560 ==
LOC: M LDO 18:20 → M LDI 18:58 → M OBS 12-14 13:02
PROVIDERS: ADMIT Advanced Practice Midwife; ATTEND Advanced Practice Midwife
PROC: 10E0XZZ Delivery of Products of Conception, External Approach (ICD-10-PCS; principal; 2022-12-14)
PROC: 0HQ9XZZ Repair Perineum Skin, External Approach (ICD-10-PCS; 2022-12-14)
DX: O42.113 Preterm premature rupture of membranes, onset of labor more than 24 hours following rupture, third trimester (principal); O60.14X0 Preterm labor third trimester with preterm delivery third trimester, not applicable or unspecified; O34.211 Maternal care for low transverse scar from previous cesarean delivery; Z37.0 Single live birth; Z3A.34 34 weeks gestation of pregnancy; Z88.0 Allergy status to penicillin; Z79.899 Other long term (current) drug therapy; O32.6XX0 Maternal care for compound presentation, not applicable or unspecified; O69.89X0 Labor and delivery complicated by other cord complications, not applicable or unspecified; O70.0 First degree perineal laceration during delivery

== ENCOUNTER → 2023-06-20 | Outpatient (REF) | payer OTHER, MEDICAID ==
[~2023-06-20] MED LIST changes: +ACET-683 PO; -DOCU-153 PO; +OMEP40CA4 PO; +STOO100C30 PO
== END ==
LOC: M SFHCWAGY 15:04
PROVIDERS: ATTEND Nurse Practitioner Family
DX: Z12.4 Encounter for screening for malignant neoplasm of cervix (principal)

== ENCOUNTER → 2024-06-24 | Outpatient (CLI) | payer OTHER ==
[2024-06-24 10:27] LABS: BASO % 0.6 % (0.0-1.0); EOS # 0.1 10^3/uL (0.0-0.5); EOS % 1.5 % (0.0-3.0); HEMATOCRIT 44.2 % (36.0-47.0); HEMOGLOBIN 14.9 g/dl (12.0-15.5); LYMPH # 2.1 10^3/uL (1.5-5.0); LYMPH % 31.4 % (24.0-44.0); MEAN CORPUSCULAR HEMOGLOBIN 31.2 pg (27.0-33.0); MEAN CORPUSCULAR HGB CONC 33.7 g/dl (32.0-36.5); MEAN CORPUSCULAR VOLUME 92.5 fl (80.0-96.0); MONO # 0.5 10^3/uL (0.0-0.8); MONO % 6.9 % (2.0-8.0); NEUTROPHILS # 3.9 10^3/uL (1.5-8.5); NEUTROPHILS % 59.3 % (36.0-66.0); PLATELET COUNT, AUTOMATED 334 10^3/uL (150-450); RED BLOOD COUNT 4.78 10^6/uL (4.00-5.40); WHITE BLOOD COUNT 6.7 10^3/uL (4.0-10.0)
[2024-06-24 10:32] LABS: ERYTHROCYTE SEDIMENTATION RATE 10 mm/hr (0-20)
[2024-06-24 11:06] LABS: ALBUMIN 3.8 G/DL (3.2-5.2); ALKALINE PHOSPHATASE 45 U/L (35-104); ALT/SGPT 21 U/L (7.0-40); AST/SGOT 11 U/L (<34); BILIRUBIN,TOTAL 0.5 MG/DL (0.3-1.2); BLOOD UREA NITROGEN 11 MG/DL (9-23); C REACTIVE PROTEIN QUANTITATIV < 0.50 MG/DL (<1.0); CALCIUM LEVEL 8.8 MG/DL (8.5-10.1); CARBON DIOXIDE LEVEL 27 MMOL/L (20-31); CHLORIDE LEVEL 107 MMOL/L (98-107); CREATININE FOR GFR 0.79 MG/DL (0.55-1.30); FREE T4 1.52 NG/DL (0.89-1.76); GLOMERULAR FILTRATION RATE > 90.0 (>60); GLUCOSE, FASTING 101 MG/DL (60-100); POTASSIUM SERUM 4.7 MMOL/L (3.5-5.1); SODIUM LEVEL 138 MMOL/L (136-145); THYROID STIMULATING HORMONE 0.699 uIU/ML (0.55-4.78); TOTAL PROTEIN 7.1 G/DL (5.7-8.2)
[2024-06-26 15:43] LABS: ANA PATTERN Nuclear, Homogeneous (NEGATIVE); ANA PATTERN 2 Nuclear, Speckled; ANA SCREEN, IFA POSITIVE (NEGATIVE); ANA TITER 1:40 titer (<1:40); ANA TITER 2 1:40 titer (NEGATIVE)
== END ==
LOC: M PLALAB 07:30
PROVIDERS: ATTEND Advanced Practice Midwife
DX: R53.83 Other fatigue (principal); M79.641 Pain in right hand

== ENCOUNTER → 2024-09-01 | Outpatient (CLI) | payer OTHER | LOC: M PLALAB 11:40 | PROVIDERS: ATTEND Advanced Practice Midwife | DX: M25.50 Pain in unspecified joint (principal); R53.83 Other fatigue ==

== ENCOUNTER 2024-12-25 11:46 | Emergency (ER) | payer OTHER ==
[~2024-12-25] VITALS: Ht 154.9 cm; Wt 71.6 kg
[2024-12-25 12:25] LABS: BASO # 0.1 10^3/uL (0.0-0.2); BASO % 0.5 % (0.0-1.0); EOS # 0.1 10^3/uL (0.0-0.5); EOS % 0.6 % (0.0-3.0); LYMPH # 2.2 10^3/uL (1.5-5.0); LYMPH % 19.6 % (24.0-44.0); MONO # 0.5 10^3/uL (0.0-0.8); MONO % 4.6 % (2.0-8.0); NEUTROPHILS # 8.5 10^3/uL (1.5-8.5); NEUTROPHILS % 74.4 % (36.0-66.0); PLATELET COUNT, AUTOMATED 349 10^3/uL (150-450)
[2024-12-25 12:52] LABS: CK-MB VALUE MASS < 1.0 NG/ML (<3.6)
[2024-12-25 12:54] LABS: ALT/SGPT 22 U/L (7.0-40); AST/SGOT 18 U/L (<34); CALCIUM LEVEL 10.2 MG/DL (8.5-10.1); CARBON DIOXIDE LEVEL 26 MMOL/L (20-31); CHLORIDE LEVEL 107 MMOL/L (98-107); CPK CREATINE PHOSPHOKINASE 59 U/L (34-145); CREATININE FOR GFR 0.70 MG/DL (0.55-1.30); GLOMERULAR FILTRATION RATE > 90.0 (>60); POTASSIUM SERUM 4.0 MMOL/L (3.5-5.1); SODIUM LEVEL 140 MMOL/L (136-145)
[2024-12-25 12:56] LABS: HCG, SERUM QUALITATIVE NEGATIVE (NEGATIVE)
[2024-12-25] MEDS: NS (Normal Saline) 0.9% 1,000 ML IV ONE (14:41)
[2024-12-25] MEDS: PANTOPRAZOLE 40MG VIAL IV ONE (14:41)
[2024-12-25] MEDS: ONDANSETRON 4MG/2ML VIAL IV ONE (14:43)
[2024-12-25] MEDS: MORPHINE 4 MG/ML 1 ML VIAL IV ONE (14:46)
[2024-12-25] MEDS ORDERED: ISOVUE-370 76% 100 ML VIAL As Ordered ONE (15:02)
[2024-12-25] MEDS ORDERED: CARA1TAB6 PO (15:59)
[2024-12-25] MEDS ORDERED: PROT1TAB2 PO (15:59)
[2024-12-25 16:04] VITALS: BP 132/73; TEMP 96.9; O2SAT 100
== END 2024-12-25 16:08 | disposition home or self-care (01) ==
LOC: M ED 11:46
DX: K29.00 Acute gastritis without bleeding (principal); K44.9 Diaphragmatic hernia without obstruction or gangrene; K21.9 Gastro-esophageal reflux disease without esophagitis; K59.00 Constipation, unspecified; Z88.0 Allergy status to penicillin; Z79.1 Long term (current) use of non-steroidal anti-inflammatories (NSAID); Z79.899 Other long term (current) drug therapy
CPT/HCPCS: 71275; 74177; 80048; 80076; 82550; 82553; 83690; 84484; 84703; 85025; 93005; 96361; 96374; 96375; 99284; J2405; J2470; Q9967

== ENCOUNTER → 2025-01-23 | Outpatient (REF) | payer OTHER ==
[~2025-01-23] MED LIST changes: +CARA1TAB6 PO; +PROT1TAB2 PO
[2025-01-23 18:26] LABS: APPEARANCE, URINE CLEAR (CLEAR); BACTERIA, URINE AUTO 1+ (NEGATIVE); BILIRUBIN, URINE AUTO NEGATIVE (NEGATIVE); BLOOD, URINE BLOOD 1+ (NEGATIVE); GLUCOSE, URINE (UA) AUTO NEGATIVE (NEGATIVE); KETONE, URINE AUTO TRACE mg/dL (NEGATIVE); LEUKOCYTE ESTERASE, URINE AUTO NEGATIVE (NEGATIVE); NITRITE, URINE AUTO NEGATIVE (NEGATIVE); PROTEIN, URINE AUTO NEGATIVE (NEGATIVE); RBC, URINE AUTO 1 /HPF (0-3); SPECIFIC GRAVITY URINE AUTO 1.003 (1.002-1.035); SQUAMOUS EPITHELIAL CELL UR AU 1 /HPF (0-6); UROBILINOGEN, URINE AUTO 0.2 mg/dL (0.0-2.0); WBC, URINE AUTO 0 /HPF (0-3)
[2025-01-23 20:18] LABS: Trichomonas vaginalis (AMP) NOT DETECTED (NEGATIVE)
[2025-01-23 20:42] LABS: GC DNA AMPLIFICATION NEGATIVE (NEGATIVE)
== END ==
LOC: M LAB REF 14:55
DX: N39.0 Urinary tract infection, site not specified (principal); Z20.2 Contact with and (suspected) exposure to infections with a predominantly sexual mode of transmission